=== PATIENT | male | born 1965 | race American Indian/Alaskan Native ===

== ENCOUNTER 2017-02-21 09:28 | Inpatient (IN) | payer MEDICAID ==
[2017-02-21 09:32] VITALS: BMI 27.6
[2017-02-21 10:32] LABS: BASO # 0.1 K/uL (0.0-0.2); BASO % 1.3 % (0.0-2.0); EOS # 0.3 K/uL (0.0-0.7); HEMOGLOBIN 11.6 g/dL (12.0-18.0); LYMPH # 1.6 K/uL (1.0-4.3); LYMPH % 23.7 % (20.0-40.0); MEAN CELL VOLUME 92.1 fL (80.0-94.0); MEAN CORPUSCULAR HEMOGLOBIN 29.8 pg (27.0-31.0); MEAN CORPUSCULAR HGB CONC 32.4 g/dL (33.0-37.0); MEAN PLATELET VOLUME 7.5 fL (7.2-11.7); MONO # 1.1 K/uL (0.0-0.8); MONO % 17.3 % (0.0-10.0); NEUT # 3.6 K/uL (1.8-7.0); NEUT % 53.7 % (50.0-75.0); RBC 3.9 Mil/uL (4.40-5.90); RED CELL DISTRIBUTION WIDTH 14.2 % (11.5-14.5); WHITE BLOOD COUNT 6.6 K/uL (4.8-10.8)
[2017-02-21 10:41] LABS: SQUAMOUS EPITHIAL < 1 /hpf (0-5); URINE BACTERIA RARE (<OCC); URINE BILIRUBIN NEGATIVE (NEGATIVE); URINE BLOOD NEGATIVE (NEGATIVE); URINE CLARITY Clear (Clear); URINE COLOR Yellow (YELLOW); URINE GLUCOSE (UA) NORMAL (Normal); URINE LEUKOCYTE ESTERASE NEG Leu/uL (Negative); URINE NITRATE NEGATIVE (NEGATIVE); URINE PROTEIN NEGATIVE (NEGATIVE)
[2017-02-21 10:48] LABS: ALBUMIN 3.3 g/dL (3.5-5.0)
[2017-02-21 10:51] LABS: ALB/GLOB RATIO 1.1 (1.0-2.1); ALT/SGPT 44 U/L (21-72); AST/SGOT 34 U/L (17-59); BLOOD UREA NITROGEN 14 mg/dL (9-20); CALCIUM 8.4 mg/dl (8.6-10.4); GFR AFRICAN-AMERICAN > 60; GFR NON-AFRICAN AMERICAN > 60
--- NOTE | 2017-02-21 10:51 | RAD ---
PROCEDURE: CHEST RADIOGRAPH, 1 VIEW. Portable study 10:00 HISTORY: Detox/Psy COMPARISON: KeyNone available. FINDINGS: LUNGS: Clear. PLEURA: No pneumothorax or pleural fluid seen. CARDIOVASCULAR: No radiographic findings to suggest acute or significant cardiovascular disease. OSSEOUS STRUCTURES: No significant abnormalities. VISUALIZED UPPER ABDOMEN: Normal. OTHER FINDINGS: None. IMPRESSION: No active disease. Concordant results with the preliminary interpretation rendered by the emergency department physician procedure.
[2017-02-21 10:58] LABS: BARBITURATES, UR NEGATIVE (NEGATIVE)
[2017-02-21 10:59] LABS: BENZODIAZEPINES, UR NEGATIVE (NEGATIVE)
[2017-02-21 11:02] LABS: PHENCYCLIDINE, UR NEGATIVE (NEGATIVE)
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
[2017-02-21 11:59] LABS: OPIATES, UR POSITIVE (NEGATIVE)
[2017-02-21 14:00] VITALS: O2SAT 100
--- NOTE | 2017-02-21 17:28 | PCM.BM ---
Treatment Plan Problems - Problems identified on initial assessmt Auditory Hallucinations Date Initiated: 02/21/17 Time Initiated: 17:27 Assessment reference: NA Status: Active Comment: Speaks to self, and yells at voices during interview. Opiate Abuse Date Initiated: 02/21/17 Time Initiated: 17:27 Assessment reference: NA Status: Active Comment: Used 11 bags yesterday, last time was 8 PM 02/20/2017
[2017-02-21] MEDS: Divalproex 500 mg DR Tab PO SCH (18:20)
[2017-02-22] MEDS: Divalproex 500 mg DR Tab PO SCH ×2 (09:38→17:04)
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
[2017-02-23] MEDS: Divalproex 500 mg DR Tab PO SCH (09:31)
[2017-02-23 09:50] VITALS: RESP 20; TEMP 97.7
--- NOTE | 2017-02-23 10:41 | PCM.PYCHPN ---
Psychiatric Progress Note - Psychiatric Progress Note Patient seen today, length of contact: 16 min Patient Chief Complaint: 'I am feeling little better' Problems Identified/Issues Discussed: Patient seen and evaluated, chart reviewed and discussed with the nurse. Patient appears more organized and less internally preoccupied than yesterday. Patient remained isolated, confined and withdrawn. He reports improvement in the voices. Patient still appears paranoid. However he remained calm and cooperative and was easily redirectable. He is taking medication and denies any side effects. Supportive therapy and psychoeducation were given. Medication Change: No Medical Record Reviewed: Yes Mental Status Examination - Cognitive Function Orientation: Person, Place, Situation, Time Memory: Intact Attention: WNL Concentration: Poor Association: WNL Fund of Knowledge: Poor - Mood Mood: Depressed, Anxious - Affect Affect: Constricted, Depressed - Speech Speech: Soft - Formal Thought Process Formal Thought Process: Hallucinations, Delusions, Paranoia, Loosening of associations - Suicidal Ideation Suicidal Ideation: No - Homicidal Ideation Homicidal Ideation: No Goal/Treatment Plan - Goal/Treatment Plan Need for Continued Stay: Discharge may exacerbated symptoms, Severe functional impairment Progress Toward Problem(s) and Goals/Treatment Plan: Schizophrenia paranoid type continuous CBT Psychoeducation Supportive therapy, group therapy, individual therapy Risperdal 2 mg PO BID Neurontin 100 mg by mouth 3 times a day Trazodone 50 mg by mouth daily at bedtime Opioid use disorder severe CBT Psychoeducation Supportive therapy, individual therapy Use [place] for abstinence Opioid withdrawal CBT Psychoeducation Supportive therapy, individual therapy Clonidine when necessary Methadone taper - Smoking Cessation Smoking Cessation Initiated: No
[2017-02-23 15:44] VITALS: BP 120/90; PULSE 93
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
--- NOTE | 2017-02-24 12:51 | CARD ---
APPROVED REPORT EKG Measurement Heart [id number] <Conclusion> Normal sinus rhythm Nonspecific T wave abnormality Abnormal ECG
== END 2017-02-23 16:04 | disposition left against medical advice (07) | DRG 430 ==
LOC: C.ER 09:28 → C.9OBSV 11:28 → OBSVTOIN 13:57 → C.9E 13:57 → C.5E 14:28
PROVIDERS: ADMIT Emergency Medicine; ATTEND Psychiatry & Neurology Psychiatry
PROC: GZHZZZZ Group Psychotherapy (ICD-10-PCS; principal; 2017-02-21)
PROC: GZ58ZZZ Individual Psychotherapy, Cognitive-Behavioral (ICD-10-PCS; 2017-02-21)
PROC: GZ56ZZZ Individual Psychotherapy, Supportive (ICD-10-PCS; 2017-02-21)
PROC: HZ56ZZZ Individual Psychotherapy for Substance Abuse Treatment, Psychoeducation (ICD-10-PCS; 2017-02-21)
PROC: HZ59ZZZ Individual Psychotherapy for Substance Abuse Treatment, Supportive (ICD-10-PCS; 2017-02-21)
PROC: HZ81ZZZ Medication Management for Substance Abuse Treatment, Methadone Maintenance (ICD-10-PCS; 2017-02-21)
DX: F20.0 Paranoid schizophrenia (principal); I10 Essential (primary) hypertension; F11.23 Opioid dependence with withdrawal; E78.00 Pure hypercholesterolemia, unspecified

== ENCOUNTER 2018-01-27 10:04 | Inpatient (IN) | payer MEDICAID ==
[2018-01-27 10:04] VITALS: BMI 27.6
[2018-01-27 11:15] LABS: BASO % 0.5 % (0.0-2.0); EOS % 0.4 % (0.0-4.0); HEMOGLOBIN 13.4 g/dL (12.0-18.0); LYMPH # 1.6 K/uL (1.0-4.3); LYMPH % 20.3 % (20.0-40.0); MEAN CELL VOLUME 89.5 fL (80.0-94.0); MEAN CORPUSCULAR HEMOGLOBIN 29.7 pg (27.0-31.0); MEAN CORPUSCULAR HGB CONC 33.1 g/dL (33.0-37.0); MEAN PLATELET VOLUME 7.3 fL (7.2-11.7); MONO % 12.9 % (0.0-10.0); NEUT % 65.9 % (50.0-75.0); RBC 4.52 Mil/uL (4.40-5.90); RED CELL DISTRIBUTION WIDTH 13.4 % (11.5-14.5); WHITE BLOOD COUNT 7.6 K/uL (4.8-10.8)
--- NOTE | 2018-01-27 11:25 | C.PDOC ---
History Of Present Illness <Serenity Asencio - Last Filed: 01/27/18 13:04> <Oswald Cacerespson Kami - Last Filed: 01/27/18 15:48> 52 y/o male with history of OD presents to ED stating "I need to take my meds". Contrary to triage patient denies suicidal ideation and reports he is compliant with medication. Patient denies drug use, recent suicide attempt or any other complaints at this time. Patient poor historian. (Serenity Asencio) History Per: Patient History/Exam Limitations: no limitations Onset/Duration Of Symptoms: Days Current Symptoms Are (Timing): Still Present Suicide/Self Injury Attempted (Context): None Modifying Factor(s): None <Serenity Asencio - Last Filed: 01/27/18 13:04> <MorrisSiddiqi Kami - Last Filed: 01/27/18 15:48> Time Seen by Provider: 01/27/18 10:35 Chief Complaint (Nursing): Psychiatric Evaluation Past Medical History Reviewed: Historical Data, Nursing Documentation, Vital Signs - Medical History PMH: Bipolar Disorder, Diabetes, HTN, Hypercholesterolemia, Schizophrenia Comment Only: Hepatitis (Patient denied), HIV (Patient denied), Seizures ( Patient denied), Sexually Transmitted Disease (Patient denied) Surgical History: No Surg Hx Family History: States: No Known Family Hx - Social History Hx Alcohol Use: No Hx Substance Use: Yes - Immunization History Hx Tetanus Toxoid Vaccination: No Hx Influenza Vaccination: Yes Hx Pneumococcal Vaccination: No <Serenity Asencio - Last Filed: 01/27/18 13:04> Vital Signs: Last Vital Signs Temp 98.9 F 01/27/18 14:25 Pulse 106 H 01/27/18 14:25 Resp 18 01/27/18 14:25 BP 113/84 01/27/18 14:25 Pulse Ox 96 01/27/18 14:25 - [facility] Procedures GROUP PSYCHOTHERAPY (02/21/17) INDIV PSYCHOTHERAPY FOR SUBSTANCE ABUSE TREATMENT, SUPPORT (02/21/17) INDIV PSYCHOTHERAPY FOR SUBSTANCE ABUSE, PSYCHOEDUCATION (02/21/17) INDIVIDUAL PSYCHOTHERAPY, COGNITIVE-BEHAVIORAL (02/21/17) INDIVIDUAL PSYCHOTHERAPY, SUPPORTIVE (02/21/17) MEDS MGMT FOR SUBSTANCE ABUSE TREATMENT, METHADONE MAINT (02/21/17) Review Of Systems Constitutional: Negative for: Fever, Chills Cardiovascular: Negative for: Chest Pain Respiratory: Negative for: Shortness of Breath Gastrointestinal: Negative for: Nausea, Vomiting Skin: Negative for: Rash Psych: Negative for: Depression, Suicidal ideation, Withdrawal <Serenity Asencio Last Filed: 01/27/18 13:04> Physical Exam - Physical Exam Appears: Non-toxic, No Acute Distress Skin: Warm, Dry, No Rash Head: Atraumatic, Normacephalic Eye(s): bilateral: Normal Inspection Oral Mucosa: Moist Neck: Normal ROM, Supple Cardiovascular: Rhythm Regular Respiratory: Normal Breath Sounds, No Rales, No Rhonchi, No Wheezing Gastrointestinal/Abdominal: Soft, No Tenderness, No Guarding, No Rebound Neurological/Psych: Oriented x3, Other (Flat affect, calm. No active hallucinations or gross intox/withdrawal signs) <Serenity Asencio Filed: 01/27/18 13:04> ED Course And Treatment - Laboratory Results Result Diagrams: 01/27/18 11:06 01/27/18 11:06 O2 Sat by Pulse Oximetry: 100 (RA) Pulse Ox Interpretation: Normal <Serenity Asencio Last Filed: 01/27/18 13:04> - Laboratory Results Result Diagrams: 01/27/18 11:06 01/27/18 11:06 <Devang Caceres - Last Filed: 01/27/18 15:48> Disposition Counseled Patient/Family Regarding: Diagnosis - Disposition Disposition Time: 13:00 <Serenity Asencio Filed: 01/27/18 13:04> Discussed With : Robin Foster Doctor Will See Patient In The: Hospital - Disposition Disposition Time: 15:48 <Devang Caceres Kami - Last Filed: 01/27/18 15:48> - Disposition Disposition: HOSPITALIZED Condition: STABLE Forms: My[employer] (Telugu) - Clinical Impression Clinical Impression: Schizophrenia - Scribe Statement The provider has reviewed the documentation as recorded by the Scribe <Serenity Asencio Filed: 01/27/18 13:04> <Devang Caceres Kami - Last Filed: 01/27/18 15:48> - Scribe Statement Alban Garcia All medical record entries made by the Scribe were at my direction and personally dictated by me. I have reviewed the chart and agree that the record accurately reflects my personal performance of the history, physical exam, medical decision making, and the department course for this patient. I have also personally directed, reviewed, and agree with the discharge instructions and disposition. (Serenity Asencio) Physician Patient Turnover Patient Signed Over To: Devang Caceres Handoff Comments: FU LABS, PSYCH, DISPO <Serenity Asencio - Last Filed: 01/27/18 13:04>
[2018-01-27 11:27] LABS: ALB/GLOB RATIO 1.2 (1.0-2.1); ALBUMIN 4.7 g/dL (3.5-5.0); ALT/SGPT 83 U/L (21-72); AST/SGOT 92 U/L (17-59); BLOOD UREA NITROGEN 16 mg/dL (9-20); CALCIUM 9.3 mg/dl (8.6-10.4); GFR AFRICAN-AMERICAN > 60; GFR NON-AFRICAN AMERICAN > 60
[2018-01-27 11:28] LABS: ACETAMINOPHEN < 10.0 ug/mL (10.0-30.0); SALICYLATE < 1.0 mg/dL 1
[2018-01-27 14:49] LABS: URINE BACTERIA RARE (<OCC); URINE BILIRUBIN NEGATIVE (NEGATIVE); URINE BLOOD 1+ (NEGATIVE); URINE CLARITY Clear (Clear); URINE COLOR Yellow (YELLOW); URINE GLUCOSE (UA) 1+ mg/dL (Normal); URINE LEUKOCYTE ESTERASE NEG Leu/uL (Negative); URINE PROTEIN 1+ mg/dL (NEGATIVE)
[2018-01-27 15:03] LABS: BARBITURATES, UR NEGATIVE (NEGATIVE); BENZODIAZEPINES, UR NEGATIVE (NEGATIVE); PHENCYCLIDINE, UR NEGATIVE (NEGATIVE)
[2018-01-27 15:04] LABS: OPIATES, UR POSITIVE (NEGATIVE)
[2018-01-27] MEDS ORDERED: Aluminum Hydroxide/Magnesium Hydroxide Susp (30 mL) PO PRN (17:28)
[2018-01-27] MEDS ORDERED: Benzocaine/Menthol (Cepacol) Lozenge PO PRN (17:28)
--- NOTE | 2018-01-27 18:10 | PCM.BM ---
<Teddy Monte - Last Filed: 01/27/18 18:08> Treatment Plan Problems - Problems identified on initial assessmt Auditory Hallucinations Date Initiated: 01/27/18 Time Initiated: 18:08 Assessment reference: NA Substance abuse Date Initiated: 01/27/18 Time Initiated: 18:09 Assessment reference: NA Treatment assets and liabiliti Patient Assests: cooperative, self-reliant, ADL independent, good support system , negotiates basic needs, cognitively intact Patient Liabilities: substance abuse (Heroin), medical problems (Diabetes, HTN) - Milieu Protocol Maintain good personal hygiene: daily Encourage regular showers, daily Remind patient to perform daily oral care, every shift Assist patient to perform ADL's Conduct patient checks and document Observation sheet: Q15 minutes (For safety) Maintain personal safety: every shift Educate patient to report safety concerns to staff, every shift Monitor environment for contraband/sharps Medication safety: Monitor for expected outcome, potential side effects: every shift, Assess barriers to learning: every shift, Assess readiness for medication education: every shift <Kerry Smith - Last Filed: 01/28/18 14:44> Family Contact Family involvement: Patient does not wish Family/SO involvement Family contact: Patient declines to allow family contact at present - Goals for Treatment Patient goals for treatment: "I want to go to a rehab program." Discharge/Continuing Care - Education Needs Education Needs: Patient Medication, Patient Diagnosis/Disease Process, Patient Coping Skills, Patient Placement options, Patient Community resources - Discharge Discharge Criteria: Free of Suicidal thoughts, Normal sleep pattern, Ability to care for self, No longer exhibiting s/s of withdrawal, Reduction of target symptoms Discharge to:: Substance Abuse Rehab - Treatment Team Participation Discussed with Family/SO: No Was Patient/Family/SO present at Treatment Team Meeting: Yes <Robin Foster - Last Filed: 01/30/18 11:20> - Diagnosis (1) Schizophrenia Status: Acute Interventions: 01/30/18 11:20 * Assess/adjust medications daily and /or as needed * See patient on an individual basis 7x/week to assess status of hallucinations * Discuss risks, benefits, side effects and alternatives of medications * (2) Opioid use disorder, severe, dependence Status: Acute Interventions: 01/30/18 11:20 * Assess 7x/week regarding severity of withdrawal * Educate regarding risks, benefits, side effects and alternatives of medications * Use Motivational Interviewing for abstinence * Use CBT for relapse prevention * Medication management for withdrawal symptoms * Encourage medication assisted treatment *
--- NOTE | 2018-01-28 10:15 | PCM.PSYCH ---
Initial Psychiatric Evaluation - Initial Psychiatric Evaluation Type of Admission: Voluntary Legal Status: Capacity Chief Complaint (in patient's own words): I was hearing voices.' History of Present Illness and Precipitating Events: Patient is a 52 year old single AAM, who was brought in by his cousin for complaints of command auditory hallucinations telling him to kill himself. Pt has a long history of schizophrenia. He has history of multiple inpatient psychiatric hospitalizations. He was last discharged from [facility] , almost 10 days ago. As per him he stopped taking his meds and relapsed on heroin. He has been abusing almost 10 bags daily, last abuse was yesterday. As per the patient he started hearing voices to hurt himself and started seeing shadows and became increasingly paranoid and delusional. His cousin brought him to the hospital for further evaluation. He appeared very disorganized and internally preoccupied. He reports auditory and visual hallucinations and persecutory delusions. Patient was observed walking around, nodding out and not cooperating with anyone. He appears delusional and paranoid. He reports of withdrawal symptoms including joint pains, sweating, headache, sweating and nausea. He has hx of OD attempt approximately 9 months ago. He reports irritability and agitation. He also reports depressed mood and feelings of hopelessness. PMH: DM Current Medications: Active Medications Generic Name Dose Route Start Last Admin Trade Name Freq PRN Reason Stop Dose Admin Al Hydrox/Mg Hydrox/Simethicone 30 ml 01/27/18 17:28 Maalox 30 Ml PO TID PRN Indigestion / Heartburn Benzocaine/Menthol 1 migdalia 01/27/18 17:28 Cepacol Sore Throat PO QID PRN Sore Throat Clonidine HCl 0.1 mg 01/27/18 17:28 Catapres PO Q8 PRN COWS Score More or Equal to 5 Gabapentin 100 mg 01/28/18 10:00 Neurontin PO TID VALERIA Hydroxyzine HCl 25 mg 01/27/18 17:29 Atarax PO Q6 PRN Anxiety Loperamide HCl 2 mg 01/27/18 17:28 Imodium PO Q8 PRN Diarrhea Ondansetron HCl 4 mg 01/27/18 17:28 Zofran Tab PO Q8 PRN Nausea/Vomiting Pseudoephedrine HCl 60 mg 01/27/18 17:28 Sudafed Tab PO QID PRN Nasal/Sinus Congestion Trazodone HCl 50 mg 01/27/18 22:00 01/27/18 21:24 Desyrel PO 50 mg HS VALERIA Administration Past Psychiatric History - Past Psychiatric History Previous Treatment History: Inpatient Pertinent Medical Hx (Current Medical&Sleep Prob, Allergies): Allergies Allergy/AdvReac Type Severity Reaction Status Date / Time No Known Allergies Allergy Verified 02/21/17 09:30 Insulin Aspart, Recombinant [Novolog] 10 unit SQ TID 01/27/18 Invega 01/27/18 Review of Systems - Review of Systems All systems: reviewed and no additional remarkable complaints except - Psychiatric Psychiatric: Anxiety, Auditory Hallucinations, Irritability, Paranoia, Suicidal Ideation Mental Status Examination - Personal Presentation Personal Presentation: Looks stated age - Affect Affect: Constricted - Motor Activity Motor Activity: Psychomotor Agitation - Reliability in Providing Information Reliability in Providing Information: Poor, due to alteration in thoughts, Poor , due to altered mood - Speech Speech: Disorganized - Mood Mood: Anxious - Formal Thought Process Formal Thought Process: Hallucinations, Delusions, Paranoia, Loosening of associations - Hallucinations/Delusions Hallucinations: Visual, Auditory Delusions: Persecution - Obsessions/Compulsions Obsessions: No Compulsions: No - Cognitive Functions Orientation: Person, Place, Situation, Time Sensorium: Alert Attention/Concentration: Attentive Abstract Thinking: [place] Estimate of Intelligence: Below average Judgement: Imparied, as evidence by: Poor judgement, Imparied, as evidence by: Lack of insight into illness - Risk Risk: Suicidal, Withdrawal, Diminished functioning - Limitations Limitations: Living alone DSM 5 DX - DSM 5 DSM 5 Diagnosis: Schizoaffective disorder bipolar type Opioid use disorder severe Opioid withdrawal - Recommended/Plan of Treatment Treatment Recommendations and Plan of Treatment: Schizoaffective disorder bipolar type CBT Psychoeducation Supportive therapy, group therapy, individual therapy Risperdal 1 mg by mouth twice a day Depakote DR 250 mg 2 times a day Trazodone 50 mg by mouth daily at bedtime Gabapentin 300 mg PO TID Opioid use disorder severe CBT Psychoeducation Supportive therapy, individual therapy Use [place] for abstinence Opioid withdrawal CBT Psychoeducation Supportive therapy, individual therapy Clonidine when necessary Methadone taper DM Continue prescribed meds Continue blood glucose monitoring - Smoking Cessation Smoking Cessation Initiated: No
[2018-01-28] MEDS: (Novolog) Insulin Aspart, Recombinant 100 u/ml 10 ml vial SC SCH ×3 (11:40→17:01)
[2018-01-28] MEDS: Divalproex 250 mg DR Tab PO SCH ×2 (11:42→17:11)
[2018-01-29] MEDS: (Novolog) Insulin Aspart, Recombinant 100 u/ml 10 ml vial SC SCH ×3 (08:12→16:26)
[2018-01-29] MEDS: Divalproex 250 mg DR Tab PO SCH ×2 (10:00→17:13)
--- NOTE | 2018-01-29 14:24 | PCM.PYCHPN ---
Psychiatric Progress Note - Psychiatric Progress Note Patient seen today, length of contact: 15 min Patient Chief Complaint: I am withdrawing.' Problems Identified/Issues Discussed: Patient seen and evaluated, chart reviewed and discussed with the nurse. Patient remained disorganized and internally preoccupied. He still reports of hearing voices. Patient still appears paranoid and delusional. Patient reports withdrawal symptoms including nausea, headaches, cramps and sweating. He reports depressed mood and feelings of hopelessness and helplessness. Patient remained isolated, confined and withdrawn. Patient is compliant with medications and denies any side effects. Symptoms are improving but need more time to stabilize. Support and psychoeducation given. Medication Change: Yes (increase risperdal ) Medical Record Reviewed: Yes Mental Status Examination - Cognitive Function Orientation: Person, Place, Situation, Time Memory: Intact Attention: Poor Concentration: Poor Association: Loose Fund of Knowledge: Poor - Mood Mood: Anxious - Affect Affect: Constricted - Speech Speech: Soft - Formal Thought Process Formal Thought Process: Hallucinations, Delusions, Paranoia, Loosening of associations - Suicidal Ideation Suicidal Ideation: No - Homicidal Ideation Homicidal Ideation: No Goal/Treatment Plan - Goal/Treatment Plan Need for Continued Stay: Severe depression anxiety, Severe functional impairment Progress Toward Problem(s) and Goals/Treatment Plan: Schizoaffective disorder bipolar type CBT Psychoeducation Supportive therapy, group therapy, individual therapy Risperdal 1 mg by mouth daily Risperdal 2 mg PO QHS Depakote DR 250 mg 2 times a day Trazodone 50 mg by mouth daily at bedtime Gabapentin 300 mg PO TID Opioid use disorder severe CBT Psychoeducation Supportive therapy, individual therapy Use [place] for abstinence Opioid withdrawal CBT Psychoeducation Supportive therapy, individual therapy Clonidine when necessary Methadone taper DM Continue prescribed meds Continue blood glucose monitoring
[2018-01-30] MEDS: (Novolog) Insulin Aspart, Recombinant 100 u/ml 10 ml vial SC SCH ×3 (08:13→16:37)
[2018-01-30] MEDS: Divalproex 250 mg DR Tab PO SCH ×2 (09:51→17:08)
--- NOTE | 2018-01-31 00:53 | PCM.PYCHPN ---
Psychiatric Progress Note - Psychiatric Progress Note Patient seen today, length of contact: 15 min Patient Chief Complaint: I am withdrawing.' Problems Identified/Issues Discussed: Patient seen and evaluated, chart reviewed and discussed with the nurse. Patient remained disorganized and internally preoccupied. He still reports of hearing voices. Patient still appears paranoid and delusional. Patient reports withdrawal symptoms including nausea, headaches, cramps and sweating. He reports depressed mood and feelings of hopelessness and helplessness. Patient remained isolated, confined and withdrawn. Patient is compliant with medications and denies any side effects. Symptoms are improving but need more time to stabilize. Support and psychoeducation given. Medication Change: Yes (invega sustenna) Medical Record Reviewed: Yes Mental Status Examination - Cognitive Function Orientation: Person, Place, Situation, Time Memory: Intact Attention: Poor Concentration: Poor Association: Loose Fund of Knowledge: Poor - Mood Mood: Anxious - Affect Affect: Constricted - Speech Speech: Soft - Formal Thought Process Formal Thought Process: Hallucinations, Delusions, Paranoia, Loosening of associations - Suicidal Ideation Suicidal Ideation: No - Homicidal Ideation Homicidal Ideation: No Goal/Treatment Plan - Goal/Treatment Plan Need for Continued Stay: Severe depression anxiety, Severe functional impairment Progress Toward Problem(s) and Goals/Treatment Plan: Schizoaffective disorder bipolar type CBT Psychoeducation Supportive therapy, group therapy, individual therapy Risperdal 1 mg by mouth daily Risperdal 2 mg PO QHS Depakote DR 250 mg 2 times a day Trazodone 50 mg by mouth daily at bedtime Gabapentin 300 mg PO TID Invega Susstenna 234 mg I/M. Opioid use disorder severe CBT Psychoeducation Supportive therapy, individual therapy Use [place] for abstinence Opioid withdrawal CBT Psychoeducation Supportive therapy, individual therapy Clonidine when necessary Methadone taper DM Continue prescribed meds Continue blood glucose monitoring - Smoking Cessation Smoking Cessation Initiated: No
[2018-01-31] MEDS: (Novolog) Insulin Aspart, Recombinant 100 u/ml 10 ml vial SC SCH ×3 (08:10→16:39)
[2018-01-31] MEDS: Divalproex 250 mg DR Tab PO SCH ×2 (09:16→17:08)
[2018-01-31] MEDS ORDERED: Paliperidone Palmitate 234 MG/1.5 ML SYR IM ONE (11:00)
--- NOTE | 2018-01-31 19:14 | PCM.PYCHPN ---
Psychiatric Progress Note - Psychiatric Progress Note Patient seen today, length of contact: 15 min Patient Chief Complaint: I still feel some SWEATS and nausea Problems Identified/Issues Discussed: Patient seen, chart reviewed, case discussed with the staff. Issues related to illness and treatment were discussed with the patient and staff. Reported compliant with treatment with no adverse affects. Tolerating treatment very well. Feeling much better with very mild withdrawal symptoms. Aftercare discussed with the patient. At the time of evaluation, patient was awake alert oriented 3, had no delusions , no auditory or visual hallucinations, no suicidal ideations or homicidal ideations. Medical Problems: Diabetes mellitus Diagnostic Results: Reviewed DSM 5 Symptoms Update: Some improvement with treatment Medication Change: No Medical Record Reviewed: Yes Mental Status Examination - Cognitive Function Orientation: Person, Place, Situation, Time Memory: Intact Attention: WNL Concentration: WNL Association: WNL Fund of Knowledge: WN Decription of patient's judgement and insights: Fair - Mood Mood: Anxious (Much less than before) - Affect Affect: Blunted - Speech Speech: Appropriate - Formal Thought Process Formal Thought Process: Paranoia, Loosening of associations - Suicidal Ideation Suicidal Ideation: No - Homicidal Ideation Homicidal Ideation: No Goal/Treatment Plan - Goal/Treatment Plan Need for Continued Stay: Remain at risks for inpatient hospitalization, Discharge may exacerbated symptoms, Severe functional impairment Progress Toward Problem(s) and Goals/Treatment Plan: Some improvement with treatment. Patient education. Supportive therapy. Continue treatment as before. Estimated Date of D/C: 02/02/18 - Smoking Cessation Smoking Cessation Initiated: No
[2018-02-01] MEDS: (Novolog) Insulin Aspart, Recombinant 100 u/ml 10 ml vial SC SCH ×3 (08:14→16:43)
[2018-02-01] MEDS: Divalproex 250 mg DR Tab PO SCH ×2 (09:33→17:11)
--- NOTE | 2018-02-01 18:35 | PCM.PYCHPN ---
Psychiatric Progress Note - Psychiatric Progress Note Patient seen today, length of contact: 15 min Patient Chief Complaint: I'm still feeling some withdrawal symptoms. Can I get more methadone. Problems Identified/Issues Discussed: Patient seen, chart reviewed, case discussed with the staff. Issues related to illness and treatment were discussed with the patient and staff. Reported compliant with treatment with no adverse affects. Tolerating treatment very well. Feeling better with very mild withdrawal symptoms, requesting for more methadone. Aftercare discussed with the patient. At the time of evaluation, patient was awake alert oriented 3, had no delusions , no auditory or visual hallucinations, no suicidal ideations or homicidal ideations. Medical Problems: Diabetes mellitus Diagnostic Results: Reviewed DSM 5 Symptoms Update: Improving with treatment Medication Change: No Medical Record Reviewed: Yes Mental Status Examination - Cognitive Function Orientation: Person, Place, Situation, Time Memory: Intact Attention: WNL Concentration: WNL Association: WNL Fund of Knowledge: [facility] Decription of patient's judgement and insights: Fair - Mood Mood: Anxious (Much less than before) - Affect Affect: Blunted - Speech Speech: Appropriate - Formal Thought Process Formal Thought Process: Paranoia, Loosening of associations - Suicidal Ideation Suicidal Ideation: No - Homicidal Ideation Homicidal Ideation: No Goal/Treatment Plan - Goal/Treatment Plan Need for Continued Stay: Remain at risks for inpatient hospitalization, Discharge may exacerbated symptoms, Severe functional impairment Progress Toward Problem(s) and Goals/Treatment Plan: Some improvement with treatment. Patient education. Supportive therapy. Continue treatment as before. Estimated Date of D/C: 02/02/18 - Smoking Cessation Smoking Cessation Initiated: No
[2018-02-02] MEDS: (Novolog) Insulin Aspart, Recombinant 100 u/ml 10 ml vial SC SCH ×3 (07:49→16:27)
[2018-02-02] MEDS: Divalproex 250 mg DR Tab PO SCH ×2 (10:09→17:28)
--- NOTE | 2018-02-02 14:24 | PCM.PYCHPN ---
Psychiatric Progress Note - Psychiatric Progress Note Patient seen today, length of contact: 15 min Patient Chief Complaint: I am withdrawing.' Problems Identified/Issues Discussed: Patient seen and evaluated, chart reviewed and discussed with the nurse. Patient remained disorganized and internally preoccupied. He still reports of hearing voices. Patient still appears paranoid and delusional. Patient reports withdrawal symptoms including nausea, headaches, cramps and sweating. He reports depressed mood and feelings of hopelessness and helplessness. Patient remained isolated, confined and withdrawn. Patient is compliant with medications and denies any side effects. Symptoms are improving but need more time to stabilize. Support and psychoeducation given. Medication Change: No Medical Record Reviewed: Yes Mental Status Examination - Cognitive Function Orientation: Person, Place, Situation, Time Memory: Intact Attention: WNL Concentration: WNL Association: WNL Fund of Knowledge: WNL - Mood Mood: Anxious (Much less than before) - Affect Affect: Blunted - Speech Speech: Appropriate - Formal Thought Process Formal Thought Process: Paranoia, Loosening of associations - Suicidal Ideation Suicidal Ideation: No - Homicidal Ideation Homicidal Ideation: No Goal/Treatment Plan - Goal/Treatment Plan Need for Continued Stay: Remain at risks for inpatient hospitalization, Discharge may exacerbated symptoms, Severe functional impairment Progress Toward Problem(s) and Goals/Treatment Plan: Schizoaffective disorder bipolar type CBT Psychoeducation Supportive therapy, group therapy, individual therapy Risperdal 1 mg by mouth daily Risperdal 2 [address] PO QHS Depakote DR 250 mg 2 times a day Trazodone 50 mg by mouth daily at bedtime Gabapentin 300 mg PO TID Invega Susstenna 234 mg I/M. Opioid use disorder severe CBT Psychoeducation Supportive therapy, individual therapy Use [place] for abstinence Opioid withdrawal CBT Psychoeducation Supportive therapy, individual therapy Clonidine when necessary Methadone taper DM Continue prescribed meds Continue blood glucose monitoring Estimated Date of D/C: 02/02/18
[2018-02-03 06:37] VITALS: BP 123/80; PULSE 69; RESP 18; TEMP 97.1; O2SAT 98
[2018-02-03] MEDS: (Novolog) Insulin Aspart, Recombinant 100 u/ml 10 ml vial SC SCH (08:06)
[2018-02-03] MEDS: Divalproex 250 mg DR Tab PO SCH (09:00)
--- NOTE | 2018-02-03 10:36 | PCM.PYCHDC ---
Mental Status Examination - Mental Status Examination Orientation: Person, Place, Situation, Time Memory: Intact Mood: Neutral Affect: Constricted Speech: Soft Attention: WNL Concentration: WNL Association: WNL Fund of Knowledge: WNL Formal Thought Process: No Impairment Description of patient's judgement and insight: good, fair Psychotic Thoughts and Behaviors: denies any AVH Suicidal Ideation: No Current Homicidal Ideation?: No Discharge Summary - Discharge Note Reason for Hospitalization: Patient is a 52 year old single AAM, who was brought in by his cousin for complaints of command auditory hallucinations telling him to kill himself. Pt has a long history of schizophrenia. He has history of multiple inpatient psychiatric hospitalizations. He was last discharged from [facility] , almost 10 days ago. As per him he stopped taking his meds and relapsed on heroin. He has been abusing almost 10 bags daily, last abuse was yesterday. As per the patient he started hearing voices to hurt himself and started seeing shadows and became increasingly paranoid and delusional. His cousin brought him to the hospital for further evaluation. He appeared very disorganized and internally preoccupied. He reports auditory and visual hallucinations and persecutory delusions. Patient was observed walking around, nodding out and not cooperating with anyone. He appears delusional and paranoid. He reports of withdrawal symptoms including joint pains, sweating, headache, sweating and nausea. He has hx of OD attempt approximately 9 months ago. He reports irritability and agitation. He also reports depressed mood and feelings of hopelessness. Laboratory Data: Abnormal Lab Results 02/02/18 02/03/18 16:23 07:58 POC Glucose (mg/dL) 183 H 161 H Consultations:: List each consultation separately and include: 1. Reason for request. 2. Findings. 3. Follow-up Summary of Hospital Course include:: 1. Description of specific treatment plan utilized for patients during their course of treatmen. 2. Summarize the time- course for resolution of acute symptoms and/or regressed behaviors. 3. Describe issues identified and worked on during hospitalization. 4. Describe medication utilized. 5. Describe medical problems identified and treated. 6. Reassessment of suicide risk Summary of Hospital Course: Patient is a 52 year old single AAM, who was brought in by his cousin for complaints of command auditory hallucinations telling him to kill himself. Pt has a long history of schizophrenia. He has history of multiple inpatient psychiatric hospitalizations. He was last discharged from [facility] , almost 10 days ago. As per him he stopped taking his meds and relapsed on heroin. He has been abusing almost 10 bags daily, last abuse was yesterday. As per the patient he started hearing voices to hurt himself and started seeing shadows and became increasingly paranoid and delusional. His cousin brought him to the hospital for further evaluation. He appeared very disorganized and internally preoccupied. He reports auditory and visual hallucinations and persecutory delusions. Patient was observed walking around, nodding out and not cooperating with anyone. He appears delusional and paranoid. He reports of withdrawal symptoms including joint pains, sweating, headache, sweating and nausea. He has hx of OD attempt approximately 9 months ago. He reports irritability and agitation. He also reports depressed mood and feelings of hopelessness. PMH: DM - Diagnosis (1) Schizophrenia Current Visit: Yes Status: Acute (2) Opioid use disorder, severe, dependence Current Visit: Yes Status: Acute - Final Diagnosis (DSM 5) Condition upon Discharge: STABLE DSM 5: Schizoaffective disorder bipolar type Opioid use disorder severe Opioid withdrawal Disposition: HOME/ ROUTINE Follow-up Treatment Plan: Schizoaffective disorder bipolar type CBT Psychoeducation Supportive therapy, group therapy, individual therapy Risperdal 1 mg by mouth daily Risperdal [address] PO QHS Depakote DR 250 mg 2 times a day Trazodone 50 mg by mouth daily at bedtime Gabapentin 300 mg PO TID Invega Susstenna 234 mg I/M. Opioid use disorder severe CBT Psychoeducation Supportive therapy, individual therapy Use [place] for abstinence Opioid withdrawal CBT Psychoeducation Supportive therapy, individual therapy Clonidine when necessary Methadone taper DM Continue prescribed meds Continue blood glucose monitoring Prescriptions/Medication Reconciliation: Benztropine [Cogentin] 1 mg PO BID #60 tab Divalproex [Depakote DR] 250 mg PO BID #60 tcp Gabapentin [Neurontin] 300 mg PO BID #60 cap risperiDONE [RisperDAL Tab] 2 mg PO BID #60 tab traZODone [Desyrel] 50 mg PO HS #30 tab
== END 2018-02-03 11:05 | disposition home or self-care (01) | DRG 430 ==
LOC: C.ER 10:04 → C.9E 15:49 → C.5E 15:49
PROVIDERS: ADMIT Psychiatry & Neurology Psychiatry; ATTEND Psychiatry & Neurology Psychiatry
PROC: GZHZZZZ Group Psychotherapy (ICD-10-PCS; principal; 2018-01-27)
PROC: HZ2ZZZZ Detoxification Services for Substance Abuse Treatment (ICD-10-PCS; 2018-01-27)
PROC: HZ52ZZZ Individual Psychotherapy for Substance Abuse Treatment, Cognitive-Behavioral (ICD-10-PCS; 2018-01-27)
PROC: HZ59ZZZ Individual Psychotherapy for Substance Abuse Treatment, Supportive (ICD-10-PCS; 2018-01-27)
PROC: HZ56ZZZ Individual Psychotherapy for Substance Abuse Treatment, Psychoeducation (ICD-10-PCS; 2018-01-27)
PROC: HZ42ZZZ Group Counseling for Substance Abuse Treatment, Cognitive-Behavioral (ICD-10-PCS; 2018-01-27)
PROC: HZ46ZZZ Group Counseling for Substance Abuse Treatment, Psychoeducation (ICD-10-PCS; 2018-01-27)
PROC: GZ58ZZZ Individual Psychotherapy, Cognitive-Behavioral (ICD-10-PCS; 2018-01-27)
PROC: GZ56ZZZ Individual Psychotherapy, Supportive (ICD-10-PCS; 2018-01-27)
DX: F25.0 Schizoaffective disorder, bipolar type (principal); F11.23 Opioid dependence with withdrawal; E11.9 Type 2 diabetes mellitus without complications; E78.00 Pure hypercholesterolemia, unspecified; I10 Essential (primary) hypertension; F41.9 Anxiety disorder, unspecified; R45.851 Suicidal ideations

== ENCOUNTER 2018-02-11 17:17 | Inpatient (IN) | payer MEDICAID ==
[2018-02-11 17:18] VITALS: BMI 27.6
[2018-02-11 17:53] LABS: BASO # 0.1 K/uL (0.0-0.2); BASO % 0.9 % (0.0-2.0); EOS % 0.5 % (0.0-4.0); HEMOGLOBIN 13.4 g/dL (12.0-18.0); LYMPH # 1.2 K/uL (1.0-4.3); LYMPH % 20.6 % (20.0-40.0); MEAN CELL VOLUME 89.4 fL (80.0-94.0); MEAN CORPUSCULAR HEMOGLOBIN 29.7 pg (27.0-31.0); MEAN CORPUSCULAR HGB CONC 33.3 g/dL (33.0-37.0); MONO # 0.8 K/uL (0.0-0.8); MONO % 12.9 % (0.0-10.0); NEUT # 3.9 K/uL (1.8-7.0); NEUT % 65.1 % (50.0-75.0); NRBC % 0.1 % (0.0-2.0); RBC 4.51 Mil/uL (4.40-5.90)
--- NOTE | 2018-02-11 18:00 | C.PDOC ---
History Of Present Illness 52yo male, with history of schizophrenia, comes to ER for evaluation of auditory hallucination. Patient states he is compliant with his medication and is due to have his Invega injection next week. Patient reports his step-son recently , which triggered his auditory hallucinations. He states the hallucinations have been worsening and he hears 5 voices telling him to hurt himself. Patient denies any recent suicide attempts and states currently, he has no suicidal or homicidal ideation. He does admit to sniffing heroin. Patient denies any fever, chills, chest pain, shortness of breath, and offers no other medical complaints. Time Seen by Provider: 02/11/18 17:24 Chief Complaint (Nursing): Psychiatric Evaluation History Per: Patient History/Exam Limitations: no limitations Onset/Duration Of Symptoms: Days Current Symptoms Are (Timing): Still Present Modifying Factor(s): Narcotics Associated Symptoms: denies: Suicidal Thoughts, Suicidal Plan Additional History Per: Patient Past Medical History Reviewed: Historical Data, Nursing Documentation, Vital Signs Vital Signs: Last Vital Signs Temp 98 F 02/11/18 17:22 Pulse 78 02/11/18 17:22 Resp 18 02/11/18 17:22 BP 136/72 02/11/18 17:22 Pulse Ox 98 02/11/18 19:47 - Medical History PMH: Bipolar Disorder, Diabetes, HTN, Hypercholesterolemia, Schizophrenia Comment Only: Hepatitis (Patient denied), HIV (Patient denied), Seizures ( Patient denied), Sexually Transmitted Disease (Patient denied) Surgical History: No Surg Hx - [facility] Procedures DETOXIFICATION SERVICES FOR SUBSTANCE ABUSE TREATMENT (01/27/18) GROUP COSTUME RENTAL CLERK FOR SUBSTANCE ABUSE TREATMENT, PSYCHOEDUCATION (01/27/18) GROUP COSTUME RENTAL CLERK FOR SUBSTANCE ABUSE, COGNITIVE BEHAVIORAL (01/27/18) GROUP PSYCHOTHERAPY (01/27/18) INDIV PSYCHOTHERAPY FOR SUBSTANCE ABUSE TREATMENT, SUPPORT (01/27/18) INDIV PSYCHOTHERAPY FOR SUBSTANCE ABUSE, COGNITIV BEHAVIORAL (01/27/18) INDIV PSYCHOTHERAPY FOR SUBSTANCE ABUSE, PSYCHOEDUCATION (01/27/18) INDIVIDUAL PSYCHOTHERAPY, COGNITIVE-BEHAVIORAL (01/27/18) INDIVIDUAL PSYCHOTHERAPY, SUPPORTIVE (01/27/18) MEDS MGMT FOR SUBSTANCE ABUSE TREATMENT, METHADONE MAINT (02/21/17) Family History: States: Unknown Family Hx - Social History Hx Alcohol Use: No Hx Substance Use: Yes - Immunization History Hx Tetanus Toxoid Vaccination: No Hx Influenza Vaccination: Yes Hx Pneumococcal Vaccination: No Review Of Systems Constitutional: Negative for: Fever, Chills Cardiovascular: Negative for: Chest Pain Respiratory: Negative for: Shortness of Breath Psych: Positive for: Psychosis (auditory hallucinations). Negative for: Suicidal ideation Physical Exam - Physical Exam Appears: Non-toxic Skin: Warm, Dry Head: Atraumatic, Normacephalic Eye(s): bilateral: Normal Inspection, PERRL Neck: Normal ROM, Supple Chest: Symmetrical Cardiovascular: Rhythm Regular Respiratory: Normal Breath Sounds Gastrointestinal/Abdominal: Soft, No Tenderness Extremity: Normal ROM, No Pedal Edema Neurological/Psych: Oriented x3, Normal Speech, Normal Cognition, Normal Motor, Normal Sensation ED Course And Treatment - Laboratory Results Result Diagrams: 02/11/18 17:49 02/11/18 17:49 Lab Interpretation: No Acute Changes O2 Sat by Pulse Oximetry: 98 (RA) Pulse Ox Interpretation: Normal Progress Note: Patient is medically cleared for psychiatric admission. Medical Decision Making Medical Decision Making: Plan: -- Labs -- Urinalysis -- UDS -- 1:1 Observation Disposition - Disposition Disposition: HOSPITALIZED Disposition Time: 20:39 Condition: STABLE - POA Present On Arrival: None - Clinical Impression Clinical Impression: Paranoid schizophrenia - Scribe Statement The provider has reviewed the documentation as recorded by the Scribe (Kaylin Savage) Provider Attestation: All medical record entries made by the Scribe were at my direction and personally dictated by me. I have reviewed the chart and agree that the record accurately reflects my personal performance of the history, physical exam, medical decision making, and the department course for this patient. I have also personally directed, reviewed, and agree with the discharge instructions and disposition.
[2018-02-11 18:10] LABS: ALB/GLOB RATIO 1.3 (1.0-2.1); ALBUMIN 4.5 g/dL (3.5-5.0); ALT/SGPT 61 U/L (21-72); AST/SGOT 49 U/L (17-59); BLOOD UREA NITROGEN 13 mg/dL (9-20); CALCIUM 9.1 mg/dl (8.6-10.4); GFR AFRICAN-AMERICAN > 60; GFR NON-AFRICAN AMERICAN > 60
[2018-02-11 19:13] LABS: SQUAMOUS EPITHIAL < 1 /hpf (0-5); URINE BACTERIA RARE (<OCC); URINE BILIRUBIN NEGATIVE (NEGATIVE); URINE BLOOD NEGATIVE (NEGATIVE); URINE CLARITY Hazy (Clear); URINE COLOR Yellow (YELLOW); URINE GLUCOSE (UA) 2+ mg/dL (Normal); URINE LEUKOCYTE ESTERASE NEG Leu/uL (Negative); URINE PROTEIN 2+ mg/dL (NEGATIVE)
[2018-02-11 19:23] LABS: BARBITURATES, UR NEGATIVE (NEGATIVE); BENZODIAZEPINES, UR NEGATIVE (NEGATIVE); PHENCYCLIDINE, UR NEGATIVE (NEGATIVE)
[2018-02-11 19:30] LABS: OPIATES, UR POSITIVE (NEGATIVE)
[2018-02-11] MEDS: Divalproex 250 mg DR Tab PO SCH (22:27)
--- NOTE | 2018-02-11 23:09 | PCM.BM ---
<Fortunato Silva - Last Filed: 02/11/18 23:08> Treatment Plan Problems - Problems identified on initial assessmt Auditory Hallucination Date Initiated: 02/11/18 Time Initiated: 21:20 Assessment reference: NA Status: Active Treatment assets and liabiliti Patient Assests: cooperative, self-reliant, ADL independent, good support system , negotiates basic needs, cognitively intact Patient Liabilities: substance abuse (Opiates), medical problems (Diabetes, Hypertension) - Milieu Protocol Maintain good personal hygiene: daily Encourage regular showers, daily Remind patient to perform daily oral care, every shift Assist patient to perform ADL's Conduct patient checks and document Observation sheet: Q15 minutes Maintain personal safety: every shift Educate patient to report safety concerns to staff, every shift Monitor environment for contraband/sharps Medication safety: Monitor for expected outcome, potential side effects: every shift, Assess barriers to learning: every shift, Assess readiness for medication education: every shift <Kerry Smith - Last Filed: 02/13/18 13:43> Family Contact Family involvement: Patient does not wish Family/SO involvement Family contact: Patient declines to allow family contact at present - Goals for Treatment Patient goals for treatment: "I want to go to an outpatient program for treatment." Discharge/Continuing Care - Education Needs Education Needs: Patient Medication, Patient Diagnosis/Disease Process, Patient Coping Skills, Patient Placement options - Discharge Discharge Criteria: Free of Suicidal thoughts, Normal sleep pattern, Ability to care for self, No longer exhibiting s/s of withdrawal, Reduction of target symptoms Discharge to:: Home, With Family - Treatment Team Participation Discussed with Family/SO: No Was Patient/Family/SO present at Treatment Team Meeting: Yes <William Ba - Last Filed: 02/13/18 16:53> - Diagnosis (1) Schizoaffective disorder, bipolar type Status: Acute Interventions: 02/13/18 16:52 * Assess/adjust medications daily and /or as needed * See patient on an individual basis 7x/week to assess symptoms of depression * Monitor for side effects & effectiveness of medications (2) Opioid use disorder, severe, dependence Status: Acute Interventions: 02/13/18 16:53 * Assess 7x/week regarding severity of withdrawal * Educate regarding risks, benefits, side effects and alternatives of medications * Use Motivational Interviewing for abstinence * Use CBT for relapse prevention * Medication management for withdrawal symptoms * Encourage medication assisted treatment
[2018-02-12] MEDS: Divalproex 250 mg DR Tab PO SCH ×2 (10:11→17:11)
[2018-02-12] MEDS: (Novolog) Insulin Aspart, Recombinant 100 u/ml 10 ml vial SC SCH ×2 (12:14→16:09)
--- NOTE | 2018-02-12 15:50 | PCM.PSYCH ---
Initial Psychiatric Evaluation - Initial Psychiatric Evaluation Type of Admission: Voluntary Legal Status: Capacity Chief Complaint (in patient's own words): I started hearing voices and also relapsed on heroin. History of Present Illness and Precipitating Events: Patient is a 52 years old, single, unemployed, on disability -[place] male with history of schizoaffective disorder bipolar type and opiate use disorder was admitted due to worsening psychosis and withdrawing from heroin. Patient reported that he was noncompliant for last 5 days. He started feeling more depressed with decreased sleep and appetite, lost about 5 pounds over 2 weeks. Started having suicidal ideations. No homicidal ideations. Patient has history of 3-4 previous suicidal attempts by overdose on heroin and was admitted in the hospital. Also started hearing voices, calling his name and telling him bad things. History of manic episodes in the past. Also relapsed on heroin, was using 7 bags of heroin daily. Last used yesterday, 4 bags. Patient started using heroin at 18 years of age, increased gradually. His longest period of abstinence was 15 years from [id number] 1 he was in [facility]. According to patient he attempted to kill his . Also smokes one pack of cigarettes daily. Refuses to take nicotine patch. Patient was born in [place] and has high school graduation. He is not working , on disability. Single, has 1 grown up daughter. Lives with daughter. He is supported by his daughter and friends His height is 5 feet 9 inches and weight is 250 pounds. Current Medications: Active Medications Generic Name Dose Route Start Last Admin Trade Name Freq PRN Reason Stop Dose Admin Albuterol 1 puff 02/11/18 22:41 Ventolin Hfa 90 Mcg/Actuation (8 G) INH RQ6 PRN Shortness of Breath Benztropine Mesylate 1 mg 02/12/18 10:00 02/12/18 10:11 Cogentin PO 1 mg DAILY VALERIA Administration Clonidine HCl 0.1 mg 02/12/18 00:40 Catapres PO Q8 PRN COWS Score More or Equal to 5 Dicyclomine HCl 10 mg 02/11/18 21:49 02/12/18 14:08 Bentyl PO 10 mg Q6H PRN Administration abdominal cramps Divalproex Sodium 250 mg 02/11/18 22:00 02/12/18 10:[address] PO 250 mg BID VALERIA Administration Gabapentin 300 mg 02/12/18 11:45 02/12/18 11:36 Neurontin PO 300 mg BID VALERIA Administration Insulin Aspart 10 unit 02/12/18 12:00 02/12/18 12:14 Novolog SC 10 u AC VALERIA Administration Loperamide HCl 2 mg 02/12/18 00:40 Imodium PO Q8 PRN Diarrhea Metformin HCl 1,000 mg 02/12/18 10:00 02/12/18 10:11 Glucophage PO 1,000 mg BIDCC VALERIA Administration Methadone HCl 15 mg 02/13/18 10:00 Methadone PO 02/16/18 09:59 Q24H VALERIA Taper Ondansetron HCl 4 mg 02/12/18 00:40 Zofran Tab PO Q8 PRN Nausea/Vomiting Risperidone 2 mg 02/12/18 10:15 Risperdal Tab PO BID VALERIA Trazodone HCl 50 mg 02/11/18 22:15 02/11/18 22:27 Desyrel PO 50 mg HS PRN Administration Insomnia Past Psychiatric History - Past Psychiatric History Previous Treatment History: Inpatient History of Abuse: None reported History of ETOH/Drug Use: See HPI History of Family Illness: Reported mother has history of heroin, cocaine and alcohol use. Pertinent Medical Hx (Current Medical&Sleep Prob, Allergies): Allergies Allergy/AdvReac Type Severity Reaction Status Date / Time No Known Allergies Allergy Verified 02/21/17 09:30 Insulin Aspart, Recombinant [Novolog] 10 unit SQ TID 01/27/18 Benztropine [Cogentin] 1 mg PO BID #60 tab 02/03/18 Divalproex [Depakote DR] 250 mg PO BID #60 tcp 02/03/18 Gabapentin [Neurontin] 300 mg PO BID #60 cap 02/03/18 risperiDONE [RisperDAL Tab] 2 mg PO BID #60 tab 02/03/18 traZODone [Desyrel] 50 mg PO HS #30 tab 02/03/18 Diabetes mellitus. Obesity. Review of Systems - Psychiatric Psychiatric: As Per HPI, Auditory Hallucinations, Depression, Paranoia Mental Status Examination - Personal Presentation Personal Presentation: Looks stated age - Affect Affect: Depressed - Motor Activity Motor Activity: Calm - Reliability in Providing Information Reliability in Providing Information: Fair - Speech Speech: Relevant - Mood Mood: Depressed - Formal Thought Process Formal Thought Process: No Impairment - Hallucinations/Delusions Hallucinations: Other (None reported at the time of evaluation) Delusions: Other - Obsessions/Compulsions Obsessions: None Compulsions: None - Cognitive Functions Orientation: Person, Place, Situation, Time Sensorium: Alert Attention/Concentration: Attentive Abstract Thinking: [place] Estimate of Intelligence: Average Judgement: Intact, as evidence by: Insight regarding need for hospitalization Memory: Recent intact, as evidence by: Ability to recall events of the day, Remote intact, as evidenced by: Ability to recall historical events - Risk Risk: Withdrawal, Diminished functioning - Strength & Assets Inventory Strength & Assets Inventory: Family support, Cooperative - Limitations Limitations: Other DSM 5 DX - DSM 5 DSM 5 Diagnosis: Schizoaffective disorder bipolar type. Opiate use disorder severe - Recommended/Plan of Treatment Treatment Recommendations and Plan of Treatment: Patient education. Supportive therapy. CBT for relapse prevention. [place] for abstinence. We will start methadone taper for opiate withdrawal symptoms. We'll start Risperdal and other when necessary medications. Projected ELOS: 8-10 days - Smoking Cessation Smoking Cessation Initiated: No Reason for not providing: Patient refused
[2018-02-13] MEDS: (Novolog) Insulin Aspart, Recombinant 100 u/ml 10 ml vial SC SCH ×3 (08:12→16:58)
[2018-02-13] MEDS: Divalproex 250 mg DR Tab PO SCH ×2 (09:10→16:59)
--- NOTE | 2018-02-13 18:53 | PCM.PYCHPN ---
Psychiatric Progress Note - Psychiatric Progress Note Patient seen today, length of contact: 15 minutes Patient Chief Complaint: I'm feeling little better but still have racing thoughts. Problems Identified/Issues Discussed: Patient seen, chart reviewed, case discussed with the staff. Issues related to illness and treatment were discussed with the patient and staff. Tolerating treatment very well without any side effects. Compliant with treatment. Reported feeling little better with some racing thoughts. Calm and cooperative. Aftercare discussed with the patient. Risk and benefits of medications were discussed with the patient. Patient understood and agreed. At the time of evaluation, patient was awake alert oriented 3, had no delusions , no auditory or visual hallucinations, no suicidal ideations or homicidal ideations. Medical Problems: Diabetes mellitus Diagnostic Results: Reviewed DSM 5 Symptoms Update: Improvement with treatment Medication Change: No Medical Record Reviewed: Yes Mental Status Examination - Cognitive Function Orientation: Person, Place, Situation, Time Memory: Intact Attention: WNL Concentration: WNL Association: WNL Fund of Knowledge: WNL Decription of patient's judgement and insights: Fair - Mood Mood: Depressed - Affect Affect: Flat, Depressed - Speech Speech: Appropriate - Formal Thought Process Formal Thought Process: Paranoia (Less than before) - Suicidal Ideation Suicidal Ideation: No - Homicidal Ideation Homicidal Ideation: No Goal/Treatment Plan - Goal/Treatment Plan Need for Continued Stay: Remain at risks for inpatient hospitalization, Discharge may exacerbated symptoms, Severe functional impairment Progress Toward Problem(s) and Goals/Treatment Plan: Patient education. Supportive therapy. CBT for relapse prevention. PR for abstinence. Continue treatment as before. Estimated Date of D/C: 02/16/18 - Smoking Cessation Smoking Cessation Initiated: No Reason for not providing: Patient refused
[2018-02-14] MEDS: Albuterol HFA 90 mcg/actuation (8 g) INH PRN (05:23)
[2018-02-14] MEDS: (Novolog) Insulin Aspart, Recombinant 100 u/ml 10 ml vial SC SCH ×3 (07:53→16:46)
[2018-02-14] MEDS: Divalproex 250 mg DR Tab PO SCH ×2 (09:31→17:13)
--- NOTE | 2018-02-14 14:35 | PCM.PYCHPN ---
Psychiatric Progress Note - Psychiatric Progress Note Patient seen today, length of contact: 15 minutes Patient Chief Complaint: I'm feeling little better but still have racing thoughts. Problems Identified/Issues Discussed: Patient seen, chart reviewed, case discussed with the staff. Issues related to illness and treatment were discussed with the patient and staff. Tolerating treatment very well without any side effects. Compliant with treatment. Reported feeling much better. Calm and cooperative. Aftercare discussed with the patient. Risk and benefits of medications were discussed with the patient. Patient understood and agreed. At the time of evaluation, patient was awake alert oriented 3, had no delusions , no auditory or visual hallucinations, no suicidal ideations or homicidal ideations. Medical Problems: Diabetes mellitus Diagnostic Results: Reviewed DSM 5 Symptoms Update: Improving with treatment Medication Change: No Medical Record Reviewed: Yes Mental Status Examination - Cognitive Function Orientation: Person, Place, Situation, Time Memory: Intact Attention: WNL Concentration: WNL Association: [facility] Fund of Knowledge: [facility] Decription of patient's judgement and insights: Fair - Mood Mood: Depressed (Much less than before) - Affect Affect: Other (Appropriate) - Speech Speech: Appropriate - Formal Thought Process Formal Thought Process: No Impairment Psychotic Thoughts and Behaviors: None - Suicidal Ideation Suicidal Ideation: No - Homicidal Ideation Homicidal Ideation: No Goal/Treatment Plan - Goal/Treatment Plan Need for Continued Stay: Remain at risks for inpatient hospitalization, Discharge may exacerbated symptoms, Severe functional impairment Progress Toward Problem(s) and Goals/Treatment Plan: Patient education. Supportive therapy. CBT for relapse prevention. [facility] for abstinence. Continue treatment as before. Patient wants to go to [facility] for follow-up care after discharge from the hospital. Estimated Date of D/C: 02/16/18 - Smoking Cessation Smoking Cessation Initiated: No
[2018-02-15 06:35] VITALS: RESP 20
[2018-02-15] MEDS: (Novolog) Insulin Aspart, Recombinant 100 u/ml 10 ml vial SC SCH ×3 (08:12→16:51)
[2018-02-15] MEDS: Divalproex 250 mg DR Tab PO SCH ×3 (09:04→17:09)
--- NOTE | 2018-02-15 17:41 | PCM.PYCHPN ---
Psychiatric Progress Note - Psychiatric Progress Note Patient seen today, length of contact: 15 minutes Patient Chief Complaint: I'm feeling much better. Problems Identified/Issues Discussed: Patient seen, chart reviewed, case discussed with the staff. Issues related to illness and treatment were discussed with the patient and staff. Tolerating treatment very well without any side effects. Compliant with treatment. Reported feeling much better. Calm and cooperative. Aftercare discussed with the patient. Risk and benefits of medications were discussed with the patient. Patient understood and agreed. At the time of evaluation, patient was awake alert oriented 3, had no delusions , no auditory or visual hallucinations, no suicidal ideations or homicidal ideations. Medical Problems: Diabetes mellitus Diagnostic Results: Reviewed DSM 5 Symptoms Update: Improving with treatment Medication Change: No Medical Record Reviewed: Yes Mental Status Examination - Cognitive Function Orientation: Person, Place, Situation, Time Memory: Intact Attention: WNL Concentration: WNL Association: [facility]N Fund of Knowledge: [facility] Decription of patient's judgement and insights: Fair - Mood Mood: Depressed (Much less than before) - Affect Affect: Other (Appropriate) - Speech Speech: Appropriate - Formal Thought Process Formal Thought Process: No Impairment Psychotic Thoughts and Behaviors: None - Suicidal Ideation Suicidal Ideation: No - Homicidal Ideation Homicidal Ideation: No Goal/Treatment Plan - Goal/Treatment Plan Need for Continued Stay: Remain at risks for inpatient hospitalization, Discharge may exacerbated symptoms, Severe functional impairment Progress Toward Problem(s) and Goals/Treatment Plan: Patient education. Supportive therapy. CBT for relapse prevention. [place] for abstinence. Continue treatment as before. Patient wants to go to [facility] for follow-up care after discharge from the hospital. Estimated Date of D/C: 02/16/18 - Smoking Cessation Smoking Cessation Initiated: No
[2018-02-15] MEDS: Albuterol HFA 90 mcg/actuation (8 g) INH PRN (18:13)
[2018-02-16 06:06] VITALS: BP 112/70; PULSE 70; TEMP 97.6; O2SAT 100
[2018-02-16] MEDS: (Novolog) Insulin Aspart, Recombinant 100 u/ml 10 ml vial SC SCH ×3 (08:31→11:55)
[2018-02-16] MEDS: Divalproex 250 mg DR Tab PO SCH (09:55)
--- NOTE | 2018-02-16 11:12 | PCM.PYCHDC ---
Mental Status Examination - Mental Status Examination Orientation: Person, Place, Situation, Time Memory: Intact Mood: Neutral Affect: Constricted Speech: Soft Attention: WNL Concentration: WNL Association: WNL Fund of Knowledge: WNL Formal Thought Process: No Impairment Description of patient's judgement and insight: good, fair Psychotic Thoughts and Behaviors: denies any AVH Suicidal Ideation: No Current Homicidal Ideation?: No Discharge Summary - Discharge Note Reason for Hospitalization: Patient is a 52 years old, single, unemployed, on disability -[place] male with history of schizoaffective disorder bipolar type and opiate use disorder was admitted due to worsening psychosis and withdrawing from heroin. Patient reported that he was noncompliant for last 5 days. He started feeling more depressed with decreased sleep and appetite, lost about 5 pounds over 2 weeks. Started having suicidal ideations. No homicidal ideations. Patient has history of 3-4 previous suicidal attempts by overdose on heroin and was admitted in the hospital. Also started hearing voices, calling his name and telling him bad things. History of manic episodes in the past. Also relapsed on heroin, was using 7 bags of heroin daily. Last used yesterday, 4 bags. Patient started using heroin at 18 years of age, increased gradually. 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 According to patient he attempted to kill his . Also smokes one pack of cigarettes daily. Refuses to take nicotine patch. Patient was born in [place] and has high school graduation. He is not working , on disability. Single, has 1 grown up daughter. Lives with daughter. He is supported by his daughter and friends His height is 5 feet 9 inches and weight is 250 pounds. Laboratory Data: Abnormal Lab Results 02/15/18 02/15/18 02/16/18 11:25 16:07 07:38 POC Glucose (mg/dL) 110 132 H 135 H Consultations:: List each consultation separately and include: 1. Reason for request. 2. Findings. 3. Follow-up Summary of Hospital Course include:: 1. Description of specific treatment plan utilized for patients during their course of treatmen. 2. Summarize the time- course for resolution of acute symptoms and/or regressed behaviors. 3. Describe issues identified and worked on during hospitalization. 4. Describe medication utilized. 5. Describe medical problems identified and treated. 6. Reassessment of suicide risk - Final Diagnosis (DSM 5) Condition upon Discharge: STABLE DSM 5: Schizoaffective disorder bipolar type. Opiate use disorder severe Disposition: HOME/ ROUTINE Prescriptions/Medication Reconciliation: Benztropine [Cogentin] 1 mg PO BID #60 tab Divalproex [Depakote DR] 250 mg PO BID #60 tcp Gabapentin [Neurontin] 300 mg PO BID #60 cap risperiDONE [RisperDAL Tab] 2 mg PO BID #60 tab traZODone [Desyrel] 50 mg PO HS PRN #30 tab PRN Reason: Insomnia
== END 2018-02-16 12:00 | disposition home or self-care (01) | DRG 430 ==
LOC: C.ER 17:17 → C.5E 20:38
PROVIDERS: ADMIT Psychiatry & Neurology Psychiatry; ATTEND Psychiatry & Neurology Psychiatry
PROC: GZHZZZZ Group Psychotherapy (ICD-10-PCS; principal; 2018-02-11)
DX: F25.0 Schizoaffective disorder, bipolar type (principal); F11.20 Opioid dependence, uncomplicated; I10 Essential (primary) hypertension; F17.210 Nicotine dependence, cigarettes, uncomplicated; E78.00 Pure hypercholesterolemia, unspecified; E11.9 Type 2 diabetes mellitus without complications; Z91.19 Patient's noncompliance with other medical treatment and regimen

== ENCOUNTER 2018-02-20 13:24 | Emergency (ER) | payer MEDICAID ==
[2018-02-20 13:25] VITALS: BMI 27.6
[2018-02-20 14:22] LABS: BASO # 0.1 K/uL (0.0-0.2); HEMOGLOBIN 12.9 g/dL (12.0-18.0); LYMPH # 1.3 K/uL (1.0-4.3); MONO # 0.8 K/uL (0.0-0.8); RBC 4.2 Mil/uL (4.40-5.90)
[2018-02-20 14:24] LABS: BASO % 0.9 % (0.0-2.0); EOS % 0.5 % (0.0-4.0); MEAN CELL VOLUME 89.2 fL (80.0-94.0); MEAN CORPUSCULAR HEMOGLOBIN 30.6 pg (27.0-31.0); MEAN CORPUSCULAR HGB CONC 34.3 g/dL (33.0-37.0); MEAN PLATELET VOLUME 7.2 fL (7.2-11.7); MONO % 11.5 % (0.0-10.0); NEUT # 4.5 K/uL (1.8-7.0); NEUT % 67.1 % (50.0-75.0); RED CELL DISTRIBUTION WIDTH 13.1 % (11.5-14.5); WHITE BLOOD COUNT 6.7 K/uL (4.8-10.8)
[2018-02-20 14:31] VITALS: BP 126/86; PULSE 79; RESP 18; TEMP 98.4; O2SAT 98
[2018-02-20 14:36] LABS: ACETAMINOPHEN < 10.0 ug/mL (10.0-30.0); ALB/GLOB RATIO 1.3 (1.0-2.1); ALBUMIN 4.4 g/dL (3.5-5.0); ALT/SGPT 54 U/L (21-72); AST/SGOT 37 U/L (17-59); BLOOD UREA NITROGEN 13 mg/dL (9-20); CALCIUM 8.6 mg/dl (8.6-10.4); GFR AFRICAN-AMERICAN > 60; GFR NON-AFRICAN AMERICAN > 60; SALICYLATE < 1.0 mg/dL 1
--- NOTE | 2018-02-20 15:21 | C.PDOC ---
History Of Present Illness 52yo male, comes to ER stating he has been having auditory hallucinations telling him to hurt himself by taking pills, present for the past couple days. Patient states due to the voices, he threw out his Trazadone and also reports he has not received his monthly injections. He denies any homicidal ideation. He does admit to using heroin, states he snorts 4-5 bags per day and feels as if he is withdrawing. Time Seen by Provider: 02/20/18 13:49 Chief Complaint (Nursing): Psychiatric Evaluation History Per: Patient History/Exam Limitations: no limitations Onset/Duration Of Symptoms: Days Current Symptoms Are (Timing): Still Present Associated Symptoms: Suicidal Thoughts Additional History Per: Patient Past Medical History Reviewed: Historical Data, Nursing Documentation, Vital Signs Vital Signs: Last Vital Signs Temp 98.4 F 02/20/18 14:30 Pulse 79 02/20/18 14:30 Resp 18 02/20/18 14:30 BP 126/86 02/20/18 14:30 Pulse Ox 98 02/20/18 18:41 - Medical History PMH: Bipolar Disorder, Diabetes, HTN, Hypercholesterolemia, Schizophrenia Comment Only: Hepatitis (Patient denied), HIV (Patient denied), Seizures ( Patient denied), Sexually Transmitted Disease (Patient denied) Surgical History: No Surg Hx - [facility] DETOXIFICATION SERVICES FOR SUBSTANCE ABUSE TREATMENT (01/27/18) [facility] FOR SUBSTANCE ABUSE TREATMENT, PSYCHOEDUCATION (01/27/18) [facility] FOR SUBSTANCE ABUSE, COGNITIVE BEHAVIORAL (01/27/18) GROUP PSYCHOTHERAPY (02/11/18) INDIV PSYCHOTHERAPY FOR SUBSTANCE ABUSE TREATMENT, SUPPORT (01/27/18) INDIV PSYCHOTHERAPY FOR SUBSTANCE ABUSE, COGNITIV BEHAVIORAL (01/27/18) INDIV PSYCHOTHERAPY FOR SUBSTANCE ABUSE, PSYCHOEDUCATION (01/27/18) INDIVIDUAL PSYCHOTHERAPY, COGNITIVE-BEHAVIORAL (01/27/18) INDIVIDUAL PSYCHOTHERAPY, SUPPORTIVE (01/27/18) MEDS MGMT FOR SUBSTANCE ABUSE TREATMENT, METHADONE MAINT (02/21/17) Family History: States: Unknown Family Hx - Social History Hx Alcohol Use: No Hx Substance Use: Yes - Immunization History Hx Tetanus Toxoid Vaccination: No Hx Influenza Vaccination: Yes Hx Pneumococcal Vaccination: No Review Of Systems Constitutional: Negative for: Fever, Chills Cardiovascular: Negative for: Chest Pain Respiratory: Negative for: Shortness of Breath Gastrointestinal: Negative for: Abdominal Pain Psych: Positive for: Suicidal ideation (hears voices telling him to hurt self). Negative for: Other (homicidal ideation) Physical Exam - Physical Exam Appears: Non-toxic Skin: Warm, Dry Head: Atraumatic, Normacephalic Eye(s): bilateral: Normal Inspection Oral Mucosa: Moist Teeth: Other (poor dentition) Neck: Normal ROM, Supple Chest: Symmetrical Cardiovascular: Rhythm Regular Respiratory: Normal Breath Sounds Gastrointestinal/Abdominal: Soft, No Tenderness Extremity: Normal ROM Neurological/Psych: Oriented x3, Normal Speech, Normal Cognition, Normal Motor, Normal Sensation Gait: Steady ED Course And Treatment - Laboratory Results Result Diagrams: 02/20/18 14:19 02/20/18 14:19 O2 Sat by Pulse Oximetry: 98 (RA) Pulse Ox Interpretation: Normal Medical Decision Making Medical Decision Making: Impression: Auditory hallucinations Plan: -- Labs -- UDS -- UA -- Reglan 10mg PO -- Tylenol 650mg PO -- Crisis evaluation 1654 discussed with crisis team. per Dr Foster, pt may be discharged, with f/u at [facility] next and should take risperidal as prescribed. Disposition Discussed With : Robin Foster - Disposition Disposition: HOME/ ROUTINE Disposition Time: 16:55 Condition: STABLE Additional Instructions: Please take your risperidal as prescribed. Follow up at [facility] next Friday as already scheduled. Return to ER for any worse symptoms. Instructions: Schizophrenia (DC) Forms: [facility] ([place]), General Discharge Instructions - Clinical Impression Clinical Impression: Paranoid schizophrenia - Scribe Statement The provider has reviewed the documentation as recorded by the Emma Savage Provider Attestation All medical record entries made by the Emma were at my direction and personally dictated by me. I have reviewed the chart and agree that the record accurately reflects my personal performance of the history, physical exam, medical decision making, and the department course for this patient. I have also personally directed, reviewed, and agree with the discharge instructions and disposition.
[2018-02-20 15:24] LABS: SQUAMOUS EPITHIAL < 1 /hpf (0-5); URINE BACTERIA RARE (<OCC); URINE BILIRUBIN NEGATIVE (NEGATIVE); URINE BLOOD NEGATIVE (NEGATIVE); URINE CLARITY Clear (Clear); URINE COLOR Yellow (YELLOW); URINE GLUCOSE (UA) 3+ mg/dL (Normal); URINE LEUKOCYTE ESTERASE NEG Leu/uL (Negative); URINE PROTEIN 1+ mg/dL (NEGATIVE)
[2018-02-20 15:52] LABS: BARBITURATES, UR NEGATIVE (NEGATIVE); BENZODIAZEPINES, UR NEGATIVE (NEGATIVE); PHENCYCLIDINE, UR NEGATIVE (NEGATIVE)
[2018-02-20 16:11] LABS: OPIATES, UR POSITIVE (NEGATIVE)
== END 2018-02-20 17:07 | disposition home or self-care (01) ==
LOC: C.ER 13:24
DX: F20.0 Paranoid schizophrenia (principal)

== ENCOUNTER 2018-03-23 18:34 | Emergency (ER) | payer MEDICAID ==
[2018-03-23 18:34] VITALS: BMI 27.6
[2018-03-23 19:40] LABS: BASO # 0.1 K/uL (0.0-0.2); BASO % 1.2 % (0.0-2.0); EOS # 0.1 K/uL (0.0-0.7); EOS % 1.3 % (0.0-4.0); HEMOGLOBIN 13.7 g/dL (12.0-18.0); LYMPH # 1.7 K/uL (1.0-4.3); LYMPH % 25.1 % (20.0-40.0); MEAN CORPUSCULAR HEMOGLOBIN 31.1 pg (27.0-31.0); MEAN CORPUSCULAR HGB CONC 33.8 g/dL (33.0-37.0); MEAN PLATELET VOLUME 7.4 fL (7.2-11.7); MONO # 0.8 K/uL (0.0-0.8); MONO % 11.3 % (0.0-10.0); NEUT # 4.2 K/uL (1.8-7.0); NEUT % 61.1 % (50.0-75.0); NRBC % 0.3 % (0.0-2.0); RBC 4.4 Mil/uL (4.40-5.90); RED CELL DISTRIBUTION WIDTH 13.8 % (11.5-14.5); WHITE BLOOD COUNT 6.9 K/uL (4.8-10.8)
[2018-03-23 19:48] LABS: SQUAMOUS EPITHIAL < 1 /hpf (0-5); URINE BILIRUBIN NEGATIVE (NEGATIVE); URINE BLOOD NEGATIVE (NEGATIVE); URINE CLARITY Clear (Clear); URINE GLUCOSE (UA) NORMAL (Normal); URINE LEUKOCYTE ESTERASE NEG Leu/uL (Negative); URINE PROTEIN 1+ mg/dL (NEGATIVE)
[2018-03-23 19:54] LABS: URINE COLOR YELLOW (YELLOW)
[2018-03-23 20:09] LABS: ALB/GLOB RATIO 1.2 (1.0-2.1); ALBUMIN 4.4 g/dL (3.5-5.0); ALT/SGPT 43 U/L (21-72); AST/SGOT 44 U/L (17-59); BLOOD UREA NITROGEN 8 mg/dL (9-20); CALCIUM 9.8 mg/dl (8.6-10.4); GFR AFRICAN-AMERICAN > 60; GFR NON-AFRICAN AMERICAN > 60
[2018-03-23 20:22] LABS: BARBITURATES, UR NEGATIVE (NEGATIVE); BENZODIAZEPINES, UR NEGATIVE (NEGATIVE); PHENCYCLIDINE, UR NEGATIVE (NEGATIVE)
[2018-03-23 20:23] LABS: OPIATES, UR POSITIVE (NEGATIVE)
--- NOTE | 2018-03-23 20:28 | C.PDOC ---
History Of Present Illness 53 y/o male, with history of paranoia and schizophrenia, presents to the emergency department with complaints of seeing things and hearing voices. Patient ran out of medication a few days ago. Patient reports having suicidal and homicidal ideation but with no actual plan. Denies physical complaints at this time. Time Seen by Provider: 03/23/18 20:27 Chief Complaint (Nursing): Psychiatric Evaluation History Per: Patient History/Exam Limitations: no limitations Onset/Duration Of Symptoms: Days Current Symptoms Are (Timing): Still Present Suicide/Self Injury Attempted (Context): None Modifying Factor(s): None Severity: None Pain Scale Rating Of: 0 Associated Symptoms: Paranoia, Suicidal Thoughts, Other (Homicidal ideation). denies: Suicidal Plan Involuntary Hold By: None Recent travel outside of the [place]: No Past Medical History Reviewed: Historical Data, Nursing Documentation, Vital Signs Vital Signs: Last Vital Signs Temp 98.8 F 03/23/18 21:20 Pulse 77 03/23/18 21:20 Resp 17 03/23/18 21:20 BP 128/81 03/23/18 21:20 Pulse Ox 97 03/23/18 22:35 - Medical History PMH: Bipolar Disorder, Diabetes, HTN, Hypercholesterolemia, Schizophrenia Comment Only: Hepatitis (Patient denied), HIV (Patient denied), Seizures ( Patient denied), Sexually Transmitted Disease (Patient denied) - [facility] Procedures DETOXIFICATION SERVICES FOR SUBSTANCE ABUSE TREATMENT (01/27/18) GROUP STRIP DEBURRER FOR SUBSTANCE ABUSE TREATMENT, PSYCHOEDUCATION (01/27/18) GROUP STRIP DEBURRER FOR SUBSTANCE ABUSE, COGNITIVE BEHAVIORAL (01/27/18) GROUP PSYCHOTHERAPY (02/11/18) INDIV PSYCHOTHERAPY FOR SUBSTANCE ABUSE TREATMENT, SUPPORT (01/27/18) INDIV PSYCHOTHERAPY FOR SUBSTANCE ABUSE, COGNITIV BEHAVIORAL (01/27/18) INDIV PSYCHOTHERAPY FOR SUBSTANCE ABUSE, PSYCHOEDUCATION (01/27/18) INDIVIDUAL PSYCHOTHERAPY, COGNITIVE-BEHAVIORAL (01/27/18) INDIVIDUAL PSYCHOTHERAPY, SUPPORTIVE (01/27/18) MEDS MGMT FOR SUBSTANCE ABUSE TREATMENT, METHADONE MAINT (02/21/17) Family History: States: No Known Family Hx - Social History Hx Alcohol Use: No Hx Substance Use: Yes - Immunization History Hx Tetanus Toxoid Vaccination: Yes Hx Influenza Vaccination: Yes Hx Pneumococcal Vaccination: Yes Review Of Systems Constitutional: Negative for: Fever, Chills Cardiovascular: Negative for: Chest Pain, Palpitations Respiratory: Negative for: Shortness of Breath Gastrointestinal: Negative for: Nausea, Vomiting, Diarrhea Neurological: Negative for: Weakness, Numbness Psych: Positive for: Suicidal ideation, Other (Homicidal ideation) Physical Exam - Physical Exam Appears: Non-toxic, Other (Pleasant, Cooperative) Skin: Warm, Dry Head: Normacephalic Eye(s): bilateral: Normal Inspection Oral Mucosa: Moist Neck: Trachea Midline, Supple Chest: Symmetrical, No Tenderness Cardiovascular: Rhythm Regular Respiratory: No Rales, No Rhonchi, No Wheezing Gastrointestinal/Abdominal: Soft, No Tenderness Neurological/Psych: Oriented x3 ED Course And Treatment - Laboratory Results Result Diagrams: 03/23/18 19:36 03/23/18 19:36 ECG: Interpreted By Me, Viewed By Me ECG Rhythm: Sinus Rhythm (76), Nonspecific Changes O2 Sat by Pulse Oximetry: 97 (Room air) Pulse Ox Interpretation: Normal - Radiology CXR: Interpreted by Me, Viewed By Me CXR Interpretation: No: Infiltrates, Fracture, Pnemothorax Progress Note: EKG, blood work, CXR, and urinalysis ordered. 10:30 PM Pt is medically cleared for transfer to [facility]. was accepted by dr perrin at [facility] Disposition Counseled Patient/Family Regarding: Studies Performed, Diagnosis - Disposition Disposition: OTHER INSTITUTION Disposition Time: 20:28 Condition: FAIR Forms: [facility] (Belarusian) - Clinical Impression Clinical Impression: Paranoid schizophrenia - Scribe Statement The provider has reviewed the documentation as recorded by the Scribpatrizia Price All medical record entries made by the Gloriaibpatrizia were at my direction and personally dictated by me. I have reviewed the chart and agree that the record accurately reflects my personal performance of the history, physical exam, medical decision making, and the department course for this patient. I have also personally directed, reviewed, and agree with the discharge instructions and disposition.
[2018-03-23 23:29] VITALS: BP 124/83; PULSE 84; RESP 18; TEMP 98.6; O2SAT 98
--- NOTE | 2018-03-24 10:26 | RAD ---
Chest x-ray single frontal view History: Psychiatric clearance. Comparison: 02/21/2017 Findings Mild venous congestion. Right hilar prominence. Tortuous aorta. Degenerative changes in the spine. Impression: Mild venous congestion. Right hilar prominence. Tortuous aorta.
--- NOTE | 2018-03-24 11:59 | CARD ---
APPROVED REPORT Date of service: 03/23/2018 EKG Measurement Heart [id number] <Conclusion> Normal sinus rhythm Normal ECG
== END 2018-03-23 23:29 | disposition short-term general hospital (02) ==
LOC: C.ER 18:34
DX: F20.0 Paranoid schizophrenia (principal); E11.9 Type 2 diabetes mellitus without complications; I10 Essential (primary) hypertension; E78.00 Pure hypercholesterolemia, unspecified

== ENCOUNTER 2018-05-06 17:13 | Inpatient (IN) | payer MEDICAID ==
[2018-05-06 17:13] VITALS: BMI 27.6
[2018-05-06 17:59] LABS: BASO % 0.4 % (0.0-2.0); EOS % 0.3 % (0.0-4.0); HEMOGLOBIN 13.9 g/dL (12.0-18.0); LYMPH # 1.3 K/uL (1.0-4.3); LYMPH % 23.7 % (20.0-40.0); MEAN CORPUSCULAR HEMOGLOBIN 31.2 pg (27.0-31.0); MEAN CORPUSCULAR HGB CONC 34.3 g/dL (33.0-37.0); MEAN PLATELET VOLUME 7.3 fL (7.2-11.7); MONO # 0.5 K/uL (0.0-0.8); MONO % 9.8 % (0.0-10.0); NEUT # 3.6 K/uL (1.8-7.0); NEUT % 65.8 % (50.0-75.0); NRBC % 0.1 % (0.0-2.0); RBC 4.47 Mil/uL (4.40-5.90); RED CELL DISTRIBUTION WIDTH 14.2 % (11.5-14.5); WHITE BLOOD COUNT 5.4 K/uL (4.8-10.8)
[2018-05-06 18:11] LABS: ALB/GLOB RATIO 1.3 (1.0-2.1); ALBUMIN 4.7 g/dL (3.5-5.0); ALT/SGPT 27 U/L (21-72); AST/SGOT 34 U/L (17-59); BLOOD UREA NITROGEN 9 mg/dL (9-20); CALCIUM 10.1 mg/dl (8.6-10.4); GFR NON-AFRICAN AMERICAN > 60
--- NOTE | 2018-05-06 18:33 | C.PDOC ---
History Of Present Illness 53-year-old male, PMHx includes schizophrenia, presents to the emergency department with complaints of auditory hallucinations. Patient is currently on Seraquil, and is compliant with his medication. States he is hearing voices telling him to hurt himself and others. Patient uses Xanax, and Heroin. States he last used Heroin at 15:30 today. Patient notes associated loss of appetite and trouble sleeping. No other complaints at this time. Time Seen by Provider: 05/06/18 17:32 Chief Complaint (Nursing): Psychiatric Evaluation History Per: Patient History/Exam Limitations: no limitations Current Symptoms Are (Timing): Still Present Past Medical History Reviewed: Historical Data, Nursing Documentation, Vital Signs Vital Signs: Last Vital Signs Temp 97.9 F 05/06/18 17:24 Pulse 100 H 05/06/18 17:24 Resp 19 05/06/18 17:24 BP 116/79 05/06/18 17:24 Pulse Ox 96 05/06/18 17:24 - Medical History PMH: Bipolar Disorder, Diabetes, HTN, Hypercholesterolemia, Schizophrenia (paranoid schizophrenia) Denies: Chronic Kidney Disease Comment Only: Hepatitis (Patient denied), HIV (Patient denied), Seizures (Patient denied), Sexually Transmitted Disease (Patient denied) - [facility] Procedures DETOXIFICATION SERVICES FOR SUBSTANCE ABUSE TREATMENT (01/27/18) GROUP CAP INSPECTOR FOR SUBSTANCE ABUSE TREATMENT, PSYCHOEDUCATION (01/27/18) GROUP CAP INSPECTOR FOR SUBSTANCE ABUSE, COGNITIVE BEHAVIORAL (01/27/18) GROUP PSYCHOTHERAPY (03/23/18) INDIV PSYCHOTHERAPY FOR SUBSTANCE ABUSE TREATMENT, SUPPORT (01/27/18) INDIV PSYCHOTHERAPY FOR SUBSTANCE ABUSE, COGNITIV BEHAVIORAL (03/23/18) INDIV PSYCHOTHERAPY FOR SUBSTANCE ABUSE, PSYCHOEDUCATION (01/27/18) INDIVIDUAL PSYCHOTHERAPY, COGNITIVE-BEHAVIORAL (03/23/18) INDIVIDUAL PSYCHOTHERAPY, SUPPORTIVE (01/27/18) MEDS MGMT FOR SUBSTANCE ABUSE TREATMENT, METHADONE MAINT (02/21/17) Family History: States: No Known Family Hx - Social History Hx Alcohol Use: No Hx Substance Use: Yes (heroin, methadone, Xanax) - Immunization History Hx Tetanus Toxoid Vaccination: Yes Hx Influenza Vaccination: (unk) Hx Pneumococcal Vaccination: Yes Review Of Systems Constitutional: Negative for: Fever, Chills Respiratory: Negative for: Shortness of Breath Gastrointestinal: Negative for: Vomiting Psych: Positive for: Suicidal ideation (+auditory hallucinations. +homicidal ideation). Negative for: Psychosis Physical Exam - Physical Exam Appears: Non-toxic, No Acute Distress Skin: Warm, Dry, No Rash Head: Atraumatic, Normacephalic Eye(s): bilateral: Normal Inspection, PERRL, EOMI Nose: Normal Oral Mucosa: Moist Lips: Normal Appearing Neck: Normal ROM Cardiovascular: Rhythm Regular, No Murmur Respiratory: Normal Breath Sounds, No Accessory Muscle Use Gastrointestinal/Abdominal: Soft, No Tenderness Back: Normal Inspection Extremity: Normal ROM, No Deformity Neurological/Psych: Oriented x3, Normal Speech ED Course And Treatment - Laboratory Results Result Diagrams: 05/06/18 17:50 05/06/18 17:50 Lab Interpretation: No Acute Changes (UDS positive for opiates and benzos) O2 Sat by Pulse Oximetry: 96 Pulse Ox Interpretation: Normal (RA) Progress Note: Patient is medically cleared for psychiatric admission. Disposition - Disposition Disposition: HOSPITALIZED Disposition Time: 20:33 Condition: STABLE - POA Present On Arrival: None - Clinical Impression Clinical Impression: Paranoid schizophrenia - Scribe Statement The provider has reviewed the documentation as recorded by the Scribe (Kiki Bruce) Provider Attestation: All medical record entries made by the Scribe were at my direction and personally dictated by me. I have reviewed the chart and agree that the record accurately reflects my personal performance of the history, physical exam, medical decision making, and the department course for this patient. I have also personally directed, reviewed, and agree with the discharge instructions and disposition.
[2018-05-06 19:28] LABS: SQUAMOUS EPITHIAL 1 /hpf (0-5); URINE BACTERIA RARE (<OCC); URINE BILIRUBIN NEGATIVE (NEGATIVE); URINE BLOOD NEGATIVE (NEGATIVE); URINE CLARITY Clear (Clear); URINE COLOR Yellow (YELLOW); URINE GLUCOSE (UA) NORMAL (Normal); URINE LEUKOCYTE ESTERASE NEG Leu/uL (Negative); URINE PROTEIN 1+ mg/dL (NEGATIVE)
[2018-05-06 19:37] LABS: BARBITURATES, UR NEGATIVE (NEGATIVE); PHENCYCLIDINE, UR NEGATIVE (NEGATIVE)
[2018-05-06 19:41] LABS: BENZODIAZEPINES, UR POSITIVE (NEGATIVE); OPIATES, UR POSITIVE (NEGATIVE)
--- NOTE | 2018-05-06 21:46 | PCM.BM ---
<Shellie Love - Last Filed: 05/06/18 21:45> Treatment Plan Problems - Problems identified on initial assessmt Auditory Hallucinations Date Initiated: 05/06/18 Time Initiated: 21:45 Assessment reference: NA Status: Active Substance Abuse Date Initiated: 05/06/18 Time Initiated: 21:45 Assessment reference: NA Status: Active Treatment assets and liabiliti Patient Assests: adapts well, cooperative, resourceful, self-reliant, ADL independent, physically healthy, good support system, negotiates basic needs, cognitively intact Patient Liabilities: live alone, poor support system, substance abuse, medical problems - Milieu Protocol Maintain good personal hygiene: daily Encourage regular showers, daily Remind patient to perform daily oral care, daily Assist patient to perform ADL's Maintain personal safety: every shift Educate patient to report safety concerns to staff, every shift Monitor environment for contraband/sharps Medication safety: Monitor for expected outcome, potential side effects: every shift, Assess barriers to learning: every shift, Assess readiness for medication education: every shift <Kerry Smith - Last Filed: 05/11/18 15:23> Family Contact Family involvement: Patient does not wish Family/SO involvement Family contact: Patient declines to allow family contact at present - Goals for Treatment Patient goals for treatment: "I am going back to [facility]." Discharge/Continuing Care - Education Needs Education Needs: Patient Medication, Patient Diagnosis/Disease Process, Patient Coping Skills - Discharge Discharge Criteria: Free of Suicidal thoughts, Free of agitation, Normal sleep pattern, Ability to care for self, No longer exhibiting s/s of withdrawal, Reduction of target symptoms Discharge to:: Home, With Family - Treatment Team Participation Discussed with Family/SO: No Was Patient/Family/SO present at Treatment Team Meeting: Yes <Robin Foster - Last Filed: 05/12/18 10:15> - Diagnosis (1) Schizophrenia Status: Acute Interventions: 05/12/18 10:15 * Assess/adjust medications daily and /or as needed * See patient on an individual basis 7x/week to assess status of hallucinations * Discuss risks, benefits, side effects and alternatives of medications * (2) Opioid use disorder, severe, dependence Status: Acute Interventions: 05/12/18 10:15 * Assess 7x/week regarding severity of withdrawal * Educate regarding risks, benefits, side effects and alternatives of medications * Use Motivational Interviewing for abstinence * Use CBT for relapse prevention * Medication management for withdrawal symptoms * Encourage medication assisted treatment *
--- NOTE | 2018-05-07 13:42 | PCM.PSYCH ---
Addendum entered and electronically signed by Robin Foster MD 05/08/18 00:18: Pt seen with the resident. Agreed with the findings. Original Note: Initial Psychiatric Evaluation - Initial Psychiatric Evaluation Type of Admission: Voluntary Legal Status: Capacity History of Present Illness and Precipitating Events: Patient is a 53 year old single AAM, who was brought in by his cousin for complaints of command auditory hallucinations telling him to kill himself. Patient has a long history of schizophrenia. He has history of multiple inpatient psychiatric hospitalizations. He was last discharged from [facility] last month. As per him he stopped taking his meds and relapsed on heroin. He has been abusing almost 7 bags daily, last abuse immediately prior to admission. As per the patient he started hearing voices to hurt himself and started seeing shadows and became increasingly paranoid and delusional. His cousin brought him to the hospital for further evaluation after taking a knife away from him. He appeared very disorganized and internally preoccupied. He reports auditory and visual hallucinations and persecutory delusions. Patient was observed walking around, nodding out and not cooperating with anyone. He appears delusional and paranoid. He reports of withdrawal symptoms including joint pains, sweating, headache, sweating and nausea. He has history of OD attempt in 2016. He reports irritability and agitation. He also reports depressed mood and feelings of hopelessness. PMH: DM Current Medications: Active Medications Generic Name Dose Route Start Last Admin Trade Name Freq PRN Reason Stop Dose Admin Gabapentin 300 mg 05/07/18 14:00 Neurontin PO TID VALERIA Hydroxyzine HCl 50 mg 05/07/18 11:12 Atarax PO Q6H PRN Anxiety Ibuprofen 600 mg 05/07/18 11:12 Motrin Tab PO Q6H PRN Pain, moderate (4-7) Metformin HCl 1,000 mg 05/07/18 11:15 05/07/18 11:50 Glucophage PO 1,000 mg BID VALERIA Administration Olanzapine 5 mg 05/07/18 18:00 Zyprexa PO BID VALERIA Pneumococcal Polyvalent Vaccine 0.5 ml 05/08/18 10:00 Pneumovax 23 Vaccine IM 05/08/18 10:01 .ONCE ONE Quetiapine Fumarate 200 mg 05/06/18 22:00 05/06/18 21:28 Seroquel PO 200 mg HS VALERIA Administration Trazodone HCl 100 mg 05/07/18 11:12 Desyrel PO HS PRN Insomnia Past Psychiatric History - Past Psychiatric History Previous Treatment History: Inpatient Pertinent Medical Hx (Current Medical&Sleep Prob, Allergies): Allergies Allergy/AdvReac Type Severity Reaction Status Date / Time No Known Allergies Allergy Verified 03/23/18 19:08 QUEtiapine [SEROquel] 50 mg PO BID 30 Days #60 tab 03/26/18 QUEtiapine [SEROquel] 200 mg PO HS 30 Days #30 tab 03/26/18 Gabapentin [Neurontin] 300 mg PO BID #60 cap 03/27/18 Invega IM Q30D 05/06/18 MetFORMIN [glucoPHAGE] 1,000 mg PO BID 05/06/18 Review of Systems - Psychiatric Psychiatric: Anhedonia, Anxiety, Auditory Hallucinations, Depression, Paranoia, Visual Hallucinations Mental Status Examination - Personal Presentation Personal Presentation: Looks older than stated age - Affect Affect: Depressed - Motor Activity Motor Activity: Calm - Reliability in Providing Information Reliability in Providing Information: Fair - Speech Speech: Disorganized, Relevant - Mood Mood: Depressed - Formal Thought Process Formal Thought Process: Hallucinations, Paranoia - Hallucinations/Delusions Hallucinations: Visual, Auditory Delusions: Persecution - Cognitive Functions Orientation: Person, Place, Situation, Time Sensorium: Alert Attention/Concentration: Easily distracted Abstract Thinking: [place] Estimate of Intelligence: Average Judgement: Intact, as evidence by: Insight regarding need for hospitalization Memory: Recent intact, as evidence by: Ability to recall events of the day - Risk Risk: Suicidal, Diminished functioning - Strength & Assets Inventory Strength & Assets Inventory: Family support, Cooperative DSM 5 DX - DSM 5 DSM 5 Diagnosis: Schizoaffective disorder bipolar type. Opiate use disorder severe - withdrawal - Recommended/Plan of Treatment Treatment Recommendations and Plan of Treatment: Patient education Supportive therapy CBT for relapse prevention HI for abstinence Methadone taper for opiate withdrawal symptoms Olanzapine, Seroquel for depression trazodone for sleep Neurotin metformin for diabetes as necessary medication, including Atarax Nicotine patch if patient allows - Smoking Cessation Smoking Cessation Initiated: No Reason for not providing: patient refused
[2018-05-08] MEDS ORDERED: Pneumococcal 23-Valent Vaccine IM ONE (10:00)
--- NOTE | 2018-05-08 10:03 | PCM.PYCHPN ---
Psychiatric Progress Note - Psychiatric Progress Note Patient seen today, length of contact: 16 min Patient Chief Complaint: I am hearing voices.' Problems Identified/Issues Discussed: Patient seen and evaluated, chart reviewed and discussed with the nurse. Pt reports depressed mood, and reports feelings of hopelessness and helplessness. He still reports irritability and agitation. Pt remained disorganized and internally preoccupied. he remained isolated and withdrawn, and confined to his room. Patient reports of withdrawal symptoms including abdominal cramps, anxiety, headaches and sweating. Patient is compliant with medications and denies any side effects. Symptoms are improving but pt needs more time to stabilize. Support and psychoeducation given. Medication Change: Yes Medical Record Reviewed: Yes Mental Status Examination - Cognitive Function Orientation: Person, Place, Situation, Time Memory: Intact Attention: WNL Concentration: Poor Association: Loose Fund of Knowledge: Poor - Mood Mood: Depressed, Anxious - Affect Affect: Constricted, Depressed - Formal Thought Process Formal Thought Process: Hallucinations, Delusions, Paranoia, Loosening of associations - Suicidal Ideation Suicidal Ideation: No - Homicidal Ideation Homicidal Ideation: No Goal/Treatment Plan - Goal/Treatment Plan Need for Continued Stay: Severe depression anxiety, Severe functional impairment Progress Toward Problem(s) and Goals/Treatment Plan: Schizoaffective disorder bipolar type. Opiate use disorder severe Opiate withdrawal -Patient education -Supportive therapy -CBT for relapse prevention -UT for abstinence -Methadone taper for opiate withdrawal symptoms -metformin for diabetes -as necessary medication, including Atarax -Nicotine patch if patient allows -Atarax 25 mg PO Q6 prn -Cogentin 1 mg PO BID -Seroquel 200 mg PO QHS -Trazodone 50 mg PO QHS -Neurontin 300 mg PO TID -Olanzapine 10 mf PO BID - Smoking Cessation Smoking Cessation Initiated: No
[2018-05-09] MEDS ORDERED: Benzocaine/Menthol (Cepacol) Lozenge PO PRN (01:19)
[2018-05-10] MEDS: Aluminum Hydroxide/Magnesium Hydroxide Susp (30 mL) PO PRN (11:34)
[2018-05-10] MEDS ORDERED: Albuterol HFA 90 mcg/actuation (8 g) INH PRN (18:00)
--- NOTE | 2018-05-10 21:31 | PCM.PYCHPN ---
Psychiatric Progress Note - Psychiatric Progress Note Patient seen today, length of contact: 15-minute Patient Chief Complaint: I still hear voices. Can he get more Seroquel. Problems Identified/Issues Discussed: Patient seen, chart reviewed, case discussed with the staff. Issues related to illness and treatment were discussed with the patient and staff. Reported compliant with treatment with no adverse affects. Tolerating treatment very well. Patient reported feeling little better with the treatment. Calm and cooperative. Awake, alert and oriented 3. No psychomotor activity, good eye contact, memory intact. Aftercare discussed with the patient. Denied any delusions, auditory or visual hallucinations, suicidal ideations or homicidal ideations at the time of evaluation. Diagnostic Results: Reviewed DSM 5 Symptoms Update: Some improvement with treatment. Medication Change: No Medical Record Reviewed: Yes Mental Status Examination - Cognitive Function Orientation: Person, Place, Situation, Time Memory: Intact Attention: WNL Concentration: WNL Association: WNL Fund of Knowledge: WN Decription of patient's judgement and insights: Good - Mood Mood: Depressed - Affect Affect: Constricted - Speech Speech: Appropriate - Formal Thought Process Formal Thought Process: Paranoia, Loosening of associations - Suicidal Ideation Suicidal Ideation: No - Homicidal Ideation Homicidal Ideation: No Goal/Treatment Plan - Goal/Treatment Plan Need for Continued Stay: Remain at risks for inpatient hospitalization, Discharge may exacerbated symptoms, Severe functional impairment Progress Toward Problem(s) and Goals/Treatment Plan: Patient education. Supportive therapy. Continue treatment as before. Estimated Date of D/C: 05/13/18 - Smoking Cessation Smoking Cessation Initiated: No
[2018-05-11] MEDS: Aluminum Hydroxide/Magnesium Hydroxide Susp (30 mL) PO PRN (10:08)
--- NOTE | 2018-05-11 11:11 | PCM.PYCHPN ---
Psychiatric Progress Note - Psychiatric Progress Note Patient seen today, length of contact: 16 min Patient Chief Complaint: I am hearing voices.' Problems Identified/Issues Discussed: Patient seen and evaluated, chart reviewed and discussed with the nurse. Pt reports depressed mood, and reports feelings of hopelessness and helplessness. He still reports irritability and agitation. Pt remained disorganized and internally preoccupied. he remained isolated and withdrawn, and confined to his room. Patient reports of withdrawal symptoms including abdominal cramps, anxiety, headaches and sweating. Patient is compliant with medications and denies any side effects. Symptoms are improving but pt needs more time to stabilize. Support and psychoeducation given. Medication Change: Yes Medical Record Reviewed: Yes Mental Status Examination - Cognitive Function Orientation: Person, Place, Situation, Time Memory: Intact Attention: WNL Concentration: Poor Association: Loose Fund of Knowledge: Poor - Mood Mood: Depressed, Anxious - Affect Affect: Constricted, Depressed - Formal Thought Process Formal Thought Process: Hallucinations, Delusions, Paranoia, Loosening of associations - Suicidal Ideation Suicidal Ideation: No - Homicidal Ideation Homicidal Ideation: No Goal/Treatment Plan - Goal/Treatment Plan Need for Continued Stay: Severe depression anxiety, Severe functional impairment Progress Toward Problem(s) and Goals/Treatment Plan: Schizoaffective disorder bipolar type. Opiate use disorder severe Opiate withdrawal -Patient education -Supportive therapy -CBT for relapse prevention -NM for abstinence -Methadone taper for opiate withdrawal symptoms -metformin for diabetes -as necessary medication, including Atarax -Nicotine patch if patient allows -Atarax 25 mg PO Q6 prn -Cogentin 1 mg PO BID -Seroquel 200 mg PO QHS -Trazodone 50 mg PO QHS -Neurontin 300 mg PO TID -Olanzapine 10 mf PO BID
[2018-05-12 06:51] VITALS: O2SAT 99
--- NOTE | 2018-05-12 10:16 | PCM.PYCHPN ---
Psychiatric Progress Note - Psychiatric Progress Note Patient seen today, length of contact: 16 min Patient Chief Complaint: I am hearing voices.' Problems Identified/Issues Discussed: Patient seen and evaluated, chart reviewed and discussed with the nurse. Staff reports pt is improving. He reports improvement in his mood and withdrawal symptoms. Patient is compliant with medications and denies any side effects. Symptoms are improving but need more time to stabilize. Support and psychoeducation given. Medication Change: Yes Medical Record Reviewed: Yes Mental Status Examination - Cognitive Function Orientation: Person, Place, Situation, Time Memory: Intact Attention: WNL Concentration: Poor Association: Loose Fund of Knowledge: Poor - Mood Mood: Depressed, Anxious - Affect Affect: Constricted, Depressed - Formal Thought Process Formal Thought Process: Hallucinations, Delusions, Paranoia, Loosening of associations - Suicidal Ideation Suicidal Ideation: No - Homicidal Ideation Homicidal Ideation: No Goal/Treatment Plan - Goal/Treatment Plan Need for Continued Stay: Severe depression anxiety, Severe functional impairment Progress Toward Problem(s) and Goals/Treatment Plan: Schizoaffective disorder bipolar type. Opiate use disorder severe Opiate withdrawal -Patient education -Supportive therapy -CBT for relapse prevention -ME for abstinence -Methadone taper for opiate withdrawal symptoms -metformin for diabetes -as necessary medication, including Atarax -Nicotine patch if patient allows -Atarax 25 mg PO Q6 prn -Cogentin 1 mg PO BID -Seroquel 200 mg PO QHS -Trazodone 50 mg PO QHS -Neurontin 300 mg PO TID -Olanzapine 10 mf PO BID
[2018-05-13 06:36] VITALS: BP 101/62; PULSE 79; RESP 18; TEMP 98.4
--- NOTE | 2018-05-13 10:50 | PCM.PYCHDC ---
Mental Status Examination - Mental Status Examination Orientation: Person, Place, Situation, Time Memory: Intact Mood: Neutral Affect: Constricted Speech: Soft Attention: WNL Concentration: WNL Association: WNL Fund of Knowledge: WNL Formal Thought Process: No Impairment Description of patient's judgement and insight: good, fair Psychotic Thoughts and Behaviors: denies any AVH Suicidal Ideation: No Current Homicidal Ideation?: No Discharge Summary - Discharge Note Reason for Hospitalization: Patient is a 53 year old single AAM, who was brought in by his cousin for complaints of command auditory hallucinations telling him to kill himself. Patient has a long history of schizophrenia. He has history of multiple [facility]. He was last discharged from [facility] [place] last month. As per him he stopped taking his meds and relapsed on heroin. He has been abusing almost 7 bags daily, last abuse immediately prior to admission. As per the patient he started hearing voices to hurt himself and started seeing shadows and became increasingly paranoid and delusional. His cousin brought him to the hospital for further evaluation after taking a knife away from him. He appeared very disorganized and internally preoccupied. He reports auditory and visual hallucinations and persecutory delusions. Patient was observed walking around, nodding out and not cooperating with anyone. He appears delusional and paranoid. He reports of withdrawal symptoms including joint pains, sweating, headache, sweating and nausea. He has history of OD attempt in 2016. He reports irritability and agitation. He also reports depressed mood and feelings of hopelessness. Laboratory Data: Abnormal Lab Results 05/13/18 07:27 POC Glucose (mg/dL) 168 H Consultations:: List each consultation separately and include: 1. Reason for request. 2. Findings. 3. Follow-up Summary of Hospital Course include:: 1. Description of specific treatment plan utilized for patients during their course of treatmen. 2. Summarize the time- course for resolution of acute symptoms and/or regressed behaviors. 3. Describe issues identified and worked on during hospitalization. 4. Describe medication utilized. 5. Describe medical problems identified and treated. 6. Reassessment of suicide risk Summary of Hospital Course: During the course of his stay, patient (pt) started progressively improving and no longer remained irritable, paranoid, depressed, and suicidal. His mood and anxiety were improved and he started attending groups and meetings and started socializing. Patient denied any feelings of hopelessness, helplessness, and worthlessness, denied any problem with the sleep or appetite, denied suicidal ideation or homicidal ideation. Pt denied any auditory or visual hallucinations. He denied any withdrawal symptoms. Pt was treated with medications along with supportive therapy, milieu therapy and group therapy. Some changes were made in his current medications and patient was discharged on following medications. He tolerated these medications very well and denied any side effects. - Diagnosis (1) Schizophrenia Status: Acute (2) Opioid use disorder, severe, dependence Status: Acute - Final Diagnosis (DSM 5) Condition upon Discharge: STABLE DSM 5: Schizoaffective disorder bipolar type. Opiate use disorder severe - withdrawal Disposition: HOME/ ROUTINE Follow-up Treatment Plan: Followup: He was discharged to the [facility] Education: Pt was educated and counseled about the risks and benefits of taking and not taking medications. Pt was educated and counseled about the risks of drinking and abusing drugs. Pt was educated and counseled to go to the ER or call 911 if pt develop suicidal ideation or homicidal ideation, worsening of symptoms or severe side effects of the meds. Prescriptions/Medication Reconciliation: Gabapentin [Neurontin] 300 mg PO TID #90 cap metFORMIN [glucOPHAGE] 1,000 mg PO BID #60 tab OLANZapine [Zyprexa] 10 mg PO BID #60 tab QUEtiapine [SEROquel] 200 mg PO HS #30 tab - Smoking Cessation Smoking Cessation Medication prescribed: No - Antipsychotic Medications Pt discharged on 2 or more routine antipsychotic medications: No
== END 2018-05-13 11:13 | disposition home or self-care (01) | DRG 750 ==
LOC: C.ER 17:13 → C.9E 20:32 → C.5E 20:45
PROVIDERS: ADMIT Psychiatry & Neurology Psychiatry; ATTEND Psychiatry & Neurology Psychiatry
PROC: GZHZZZZ Group Psychotherapy (ICD-10-PCS; principal; 2018-05-06)
PROC: GZ56ZZZ Individual Psychotherapy, Supportive (ICD-10-PCS; 2018-05-06)
DX: F25.0 Schizoaffective disorder, bipolar type (principal); E11.9 Type 2 diabetes mellitus without complications; I10 Essential (primary) hypertension; F11.23 Opioid dependence with withdrawal; E78.00 Pure hypercholesterolemia, unspecified; F19.10 Other psychoactive substance abuse, uncomplicated

== ENCOUNTER 2018-07-15 14:36 | Inpatient (IN) | payer MEDICAID, OTHER ==
[2018-07-15 14:36] VITALS: BMI 27.6
[2018-07-15 15:30] LABS: BASO % 0.9 % (0.0-2.0); EOS # 0.1 K/uL (0.0-0.7); EOS % 1.8 % (0.0-4.0); LYMPH # 1.8 K/uL (1.0-4.3); LYMPH % 35.9 % (20.0-40.0); MEAN CELL VOLUME 90.4 fL (80.0-94.0); MEAN CORPUSCULAR HEMOGLOBIN 29.8 pg (27.0-31.0); MEAN CORPUSCULAR HGB CONC 32.9 g/dL (33.0-37.0); MEAN PLATELET VOLUME 6.7 fL (7.2-11.7); MONO # 0.5 K/uL (0.0-0.8); MONO % 10.2 % (0.0-10.0); NEUT # 2.5 K/uL (1.8-7.0); NEUT % 51.2 % (50.0-75.0); NRBC % 0.1 % (0.0-2.0); RBC 4.7 Mil/uL (4.40-5.90); RED CELL DISTRIBUTION WIDTH 13.6 % (11.5-14.5); WHITE BLOOD COUNT 4.9 K/uL (4.8-10.8)
[2018-07-15 15:40] LABS: SQUAMOUS EPITHIAL < 1 /hpf (0-5); URINE BILIRUBIN NEGATIVE (NEGATIVE); URINE BLOOD NEGATIVE (NEGATIVE); URINE CLARITY Clear (Clear); URINE COLOR Amber (YELLOW); URINE GLUCOSE (UA) NORMAL (Normal); URINE LEUKOCYTE ESTERASE NEG Leu/uL (Negative); URINE PROTEIN 1+ mg/dL (NEGATIVE)
[2018-07-15 15:42] LABS: ALB/GLOB RATIO 1.2 (1.0-2.1); ALBUMIN 4.6 g/dL (3.5-5.0); ALT/SGPT 33 U/L (21-72); BLOOD UREA NITROGEN 11 mg/dL (9-20); CALCIUM 9.5 mg/dl (8.6-10.4); GFR NON-AFRICAN AMERICAN > 60
[2018-07-15 15:45] LABS: BARBITURATES, UR NEGATIVE (NEGATIVE); PHENCYCLIDINE, UR NEGATIVE (NEGATIVE)
[2018-07-15 15:47] LABS: BENZODIAZEPINES, UR POSITIVE (NEGATIVE); OPIATES, UR POSITIVE (NEGATIVE)
[2018-07-15 15:53] LABS: AST/SGOT 42 U/L (17-59)
--- NOTE | 2018-07-15 16:22 | C.PDOC ---
History Of Present Illness 53 y/o male with a PMHx of bipolar disorder, schizophrenia, and depression, presents to the ED for suicidal ideation. Patient reports he is compliant with all meds. States he is feeling suicidal and hearing voices telling him to hurt himself and family. Decided to leave and seek help. No physical complaints offered at this time. He admits to smoking and intra-nasal heroin use. Denies alcohol use. Time Seen by Provider: 07/15/18 14:45 Chief Complaint (Nursing): Psychiatric Evaluation History Per: Patient History/Exam Limitations: no limitations Onset/Duration Of Symptoms: Days Current Symptoms Are (Timing): Still Present Suicide/Self Injury Attempted (Context): None Modifying Factor(s): Other (Heroin) Associated Symptoms: Depression, Suicidal Thoughts, Suicidal Plan Involuntary Hold By: None Past Medical History Reviewed: Historical Data, Nursing Documentation, Vital Signs Vital Signs: Last Vital Signs Temp 97.6 F 07/15/18 15:05 Pulse 99 H 07/15/18 15:05 Resp 18 07/15/18 15:05 BP 122/77 07/15/18 15:05 Pulse Ox 99 07/15/18 15:05 - Medical History PMH: Anxiety, Bipolar Disorder, Diabetes, HTN, Hypercholesterolemia, Schizophrenia (paranoid schizophrenia) Denies: Chronic Kidney Disease Comment Only: Hepatitis (Patient denied), HIV (Patient denied), Seizures (Patient denied), Sexually Transmitted Disease (Patient denied) - [facility] Procedures DETOXIFICATION SERVICES FOR SUBSTANCE ABUSE TREATMENT (01/27/18) GROUP LEAD PYTHON DEVELOPER FOR SUBSTANCE ABUSE TREATMENT, PSYCHOEDUCATION (01/27/18) GROUP LEAD PYTHON DEVELOPER FOR SUBSTANCE ABUSE, COGNITIVE BEHAVIORAL (01/27/18) GROUP PSYCHOTHERAPY (05/06/18) INDIV PSYCHOTHERAPY FOR SUBSTANCE ABUSE TREATMENT, SUPPORT (01/27/18) INDIV PSYCHOTHERAPY FOR SUBSTANCE ABUSE, COGNITIV BEHAVIORAL (03/23/18) INDIV PSYCHOTHERAPY FOR SUBSTANCE ABUSE, PSYCHOEDUCATION (01/27/18) INDIVIDUAL PSYCHOTHERAPY, COGNITIVE-BEHAVIORAL (03/23/18) INDIVIDUAL PSYCHOTHERAPY, SUPPORTIVE (05/06/18) MEDS MGMT FOR SUBSTANCE ABUSE TREATMENT, METHADONE MAINT (02/21/17) Family History: States: Unknown Family Hx - Social History Hx Alcohol Use: No Hx Substance Use: Yes - Immunization History Hx Tetanus Toxoid Vaccination: Yes Hx Influenza Vaccination: (unk) Hx Pneumococcal Vaccination: Yes Review Of Systems Except As Marked, All Systems Reviewed And Found Negative. Constitutional: Negative for: Fever Cardiovascular: Negative for: Chest Pain Respiratory: Negative for: Shortness of Breath Gastrointestinal: Negative for: Vomiting, Abdominal Pain Psych: Positive for: Suicidal ideation (with plan to cut throat and take pills), Other (Hearing voices telling him to hurt self and others) Physical Exam - Physical Exam Appears: Non-toxic, No Acute Distress Skin: Normal Color, Warm, Dry Head: Atraumatic, Normacephalic Eye(s): bilateral: Normal Inspection, PERRL, EOMI Oral Mucosa: Moist Neck: Normal ROM Chest: Symmetrical Cardiovascular: Rhythm Regular, No Murmur Respiratory: Normal Breath Sounds, No Rales, No Rhonchi, No Wheezing Gastrointestinal/Abdominal: Soft, No Tenderness, No Distention Extremity: Bilateral: Atraumatic, Normal Color And Temperature Neurological/Psych: Oriented x3, Other (Flat affect) ED Course And Treatment - Laboratory Results Result Diagrams: 07/15/18 15:24 07/15/18 15:24 ECG: Interpreted By Me, Viewed By Me ECG Rhythm: Sinus Rhythm Rate From EC (bpm) O2 Sat by Pulse Oximetry: 99 (RA) Pulse Ox Interpretation: Normal - Other Rad CXR X-Ray: Read By Radiologist Interpretation: Accession No. : [id number]. Patient Name / ID : MEL RODRIGUEZ / [id number]. Exam Date : 07/15/2018 15:14:46 ( Approved ). Study Comment : Sex / Age : M / 53Y. Creator : Neelam English MD. Dictator : Neelam English MD. District Associate Judge : Extension Associate : Neelam English MD. Approver2 : Report Date : 07/15/2018 16:44:36. My Comment : . HISTORY: Detox/Psy. COMPARISON: Chest x-ray performed 03/23/18. TECHNIQUE: Chest, one view. FINDINGS: Examination limited by habitus and hypoinflation. LUNGS: Right hilar prominence. Mild venous congestion versus vascular crowding due to hypoinflation. No focal c onsolidation. Please note that chest x-ray has limited sensitivity for the detection of pulmonary masses. PLEURA: No significant pleural effusion identified. No definite pneumothorax . CARDIOVASCULAR: Heart size appears top normal. No significant atherosclerotic calcification present. OSSEOUS STRUCTURES: No acute osseous abnormality identified. VISUALIZED UPPER ABDOMEN: Unremarkable. OTHER FINDINGS: None. IMPRESSION: Right hilar prominence. Mild venous congestion versus vascular crowding due to hypoinflation. Medical Decision Making Medical Decision Making: Impression: Suicidal Ideation Plan: Labs, EKG, and CXR ordered for medical clearance. Patient given 0.5 mg Xanax PO. Placed on 1:1 obs, awaiting crisis evaluation. Labs reviewed, Utox + for opiates. Patient is medically cleared for psychiatric evaluation. 16:44 Spoke with crisis, patient is to be admitted for schizophrenia under Dr. Vides. Disposition Discussed With : Betty Vides Doctor Will See Patient In The: Hospital Counseled Patient/Family Regarding: Studies Performed - Disposition Disposition: HOSPITALIZED Disposition Time: 15:30 Condition: STABLE - POA Present On Arrival: None - Clinical Impression Clinical Impression: Paranoid schizophrenia - Scribe Statement The provider has reviewed the documentation as recorded by the Emma Miller Provider Attestation: All medical record entries made by the Emma were at my direction and perso naila dictated by me. I have reviewed the chart and agree that the record accurately reflects my personal performance of the history, physical exam, medical decision making, and the department course for this patient. I have also personally directed, reviewed, and agree with the discharge instructions and disposition.
--- NOTE | 2018-07-15 16:48 | RAD ---
HISTORY: Detox/Psy COMPARISON: Chest x-ray performed 03/23/18 TECHNIQUE: Chest, one view. FINDINGS: Examination limited by habitus and hypoinflation. LUNGS: Right hilar prominence. Mild venous congestion versus vascular crowding due to hypoinflation. No focal consolidation. Please note that chest x-ray has limited sensitivity for the detection of pulmonary masses. PLEURA: No significant pleural effusion identified. No definite pneumothorax . CARDIOVASCULAR: Heart size appears top normal. No significant atherosclerotic calcification present. OSSEOUS STRUCTURES: No acute osseous abnormality identified. VISUALIZED UPPER ABDOMEN: Unremarkable. OTHER FINDINGS: None. IMPRESSION: Right hilar prominence. Mild venous congestion versus vascular crowding due to hypoinflation.
[2018-07-15 18:34] VITALS: O2SAT 99
[2018-07-15] MEDS ORDERED: Albuterol HFA 90 mcg/actuation (8 g) INH PRN (20:00)
--- NOTE | 2018-07-15 21:50 | PCM.BM ---
<ShiraFortunato - Last Filed: 07/15/18 21:46> Treatment Plan Problems - Problems identified on initial assessmt Depression Date Initiated: 07/15/18 Time Initiated: 17:30 Assessment reference: NA Status: Active Auditory Hallucinations Date Initiated: 07/15/18 Time Initiated: 17:30 Assessment reference: NA Status: Active Treatment assets and liabiliti Patient Assests: adapts well, good support system, negotiates basic needs, cognitively intact, cooperative, resourceful, self-reliant, ADL independent, physically healthy Patient Liabilities: substance abuse (Heroin), medical problems (Diabetes, HTN, Asthma) - Milieu Protocol Maintain good personal hygiene: daily Encourage regular showers, daily Remind patient to perform daily oral care, every shift Assist patient to perform ADL's Conduct patient checks and document Observation sheet: Q15 minutes Maintain personal safety: every shift Educate patient to report safety concerns to staff, every shift Monitor environment for contraband/sharps Medication safety: Monitor for expected outcome, potential side effects: every shift, Assess barriers to learning: every shift, Assess readiness for medication education: every shift <Viki Vuong - Last Filed: 07/17/18 10:50> Family Contact Family involvement: Family/SO is involved Family contact: Patient declines to allow family contact at present - Goals for Treatment Patient goals for treatment: "I want to go to another day program." Discharge/Continuing Care - Education Needs Education Needs: Patient Medication, Patient Coping Skills - Discharge Discharge Criteria: Tolerates medication w/o severe side effects, No longer exhibiting s/s of withdrawal, Reduction of target symptoms Discharge to:: Home, With Family - Treatment Team Participation Discussed with Family/SO: No Was Patient/Family/SO present at Treatment Team Meeting: Yes
--- NOTE | 2018-07-16 10:57 | PCM.PSYCH ---
Initial Psychiatric Evaluation - Initial Psychiatric Evaluation Type of Admission: Voluntary Legal Status: Capacity Chief Complaint (in patient's own words): I was hearing voices telling me to harm myself and others.' History of Present Illness and Precipitating Events: This is a 53 years old male, who is currently single and unemployed, escorted to the ED by the ambulance because of disorganized behavior, auditory hallucinations command type telling him to harm himself and others. Well Logging Captain is familiar with this patient. Patient has a history of multiple inpatient psychiatric admissions because of disorganized behavior, noncompliance with medications and heroin abuse. He was just recently discharged from [facility], most 3 months ago. Patient reports that he has been partially compliant with medications and started abusing heroine 7-8 bags daily. He reports that he started hearing voices for a couple of weeks. However he reports that yesterday he developed suicidal ideation with a plan to grab a gun and shoot himself. He appeared somewhat disorganized and internally preoccupied throughout the interview. He appeared paranoid and delusional. He reports that the voices in his head sound like a shot core drill operator when they speak to him. He reports that he is in extreme pain because the voices wouldnt stop. He reports depressed mood, feelings of hopelessness and helplessness, poor sleep and poor appetite. He reports withdrawal symptoms from heroin including anxiety, vomiting, sweating, restlessness, yawning, muscle aches, irritability, diarrhea and abdominal pains. Patient reports that he has history of multiple incarcerations for up to 15 years due to aggressive and agitated behavior towards others Past medical history: DM and asthma Family history: Mother from lung cancer and that his father had diabetes. Mother was also addicted to heroin Current Medications: Active Medications Generic Name Dose Route Start Last Admin Trade Name Freq PRN Reason Stop Dose Admin Acetaminophen 650 mg 07/15/18 18:27 07/15/18 19:00 Tylenol 325mg Tab PO 650 mg Q6 PRN Administration Pain, moderate (4-7) Albuterol 1 puff 07/15/18 20:00 Ventolin Hfa 90 Mcg/Actuation (8 G) INH RQ6 PRN Shortness of Breath Clonidine HCl 0.1 mg 07/15/18 20:00 Catapres PO Q8H PRN WITHDRAWAL SYMPTOMS Metformin HCl 1,000 mg 07/15/18 19:00 12/06/18 09:12 Glucophage PO 1,000 mg BID VALERIA Administration Pneumococcal Polyvalent Vaccine 0.5 ml 07/18/18 10:00 Pneumovax 23 Vaccine IM 07/18/18 10:01 .ONCE ONE Quetiapine Fumarate 200 mg 07/15/18 22:00 07/15/18 22:27 Seroquel PO 200 mg HS VALERIA Administration Past Psychiatric History - Past Psychiatric History Previous Treatment History: Inpatient Pertinent Medical Hx (Current Medical&Sleep Prob, Allergies): Allergies Allergy/AdvReac Type Severity Reaction Status Date / Time No Known Allergies Allergy Verified 06/02/18 14:40 QUEtiapine [SEROquel] 50 mg PO BID 30 Days #60 tab 03/26/18 QUEtiapine [SEROquel] 200 mg PO HS 30 Days #30 tab 03/26/18 Gabapentin [Neurontin] 300 mg PO BID #60 cap 03/27/18 Invega IM Q30D 05/06/18 MetFORMIN [glucoPHAGE] 1,000 mg PO BID 05/06/18 Gabapentin [Neurontin] 300 mg PO TID #90 cap 05/13/18 OLANZapine [Zyprexa] 10 mg PO BID #60 tab 05/13/18 QUEtiapine [SEROquel] 200 mg PO HS #30 tab 05/13/18 metFORMIN [glucOPHAGE] 1,000 mg PO BID #60 tab 05/13/18 No Known Home Med 06/02/18 Review of Systems - Review of Systems All systems: reviewed and no additional remarkable complaints except - Psychiatric Psychiatric: Anxiety, Auditory Hallucinations, Depression, Hopelessness, Mood Swings, Suicidal Ideation Mental Status Examination - Personal Presentation Personal Presentation: Looks stated age - Affect Affect: Constricted, Depressed - Motor Activity Motor Activity: Calm - Reliability in Providing Information Reliability in Providing Information: Poor, due to alteration in thoughts, Poor, due to altered mood - Speech Speech: Disorganized - Mood Mood: Depressed, Anxious - Formal Thought Process Formal Thought Process: Hallucinations, Delusions, Paranoia, Loosening of associations - Obsessions/Compulsions Obsessions: No Compulsions: No - Cognitive Functions Orientation: Person, Place, Situation, Time Sensorium: Alert Attention/Concentration: Attentive Abstract Thinking: Allison Estimate of Intelligence: Below average Judgement: Imparied, as evidence by: Poor judgement, Imparied, as evidence by: Lack of insight into illness - Risk Risk: Suicidal, Withdrawal, Diminished functioning - Limitations Limitations: Living alone DSM 5 DX - DSM 5 DSM 5 Diagnosis: Schizoaffective disorder bipolar type Opioid use disorder severe Opioid withdrawal Cocaine use disorder moderate - Recommended/Plan of Treatment Treatment Recommendations and Plan of Treatment: Schizoaffective disorder bipolar type Opioid use disorder severe Opioid withdrawal Cocaine use disorder moderate CBT Psychoeducation Supportive therapy Trileptal 150 mg p.o. twice daily Olanzapine 5 mg p.o. twice daily Seroquel 50 mg p.o. twice daily Seroquel 200 mg p.o. nightly Neurontin 300 mg p.o. 3 times daily Hydroxyzine 50 mg p.o. every 6 hours as needed Methadone taper As needed medications
--- NOTE | 2018-07-16 22:12 | CARD ---
APPROVED REPORT Date of service: 07/15/2018 EKG Measurement Heart [id number] <Conclusion> Normal sinus rhythm Possible Left atrial enlargement Left axis deviation Septal infarct, age undetermined Abnormal ECG
--- NOTE | 2018-07-17 10:32 | PCM.PYCHPN ---
Psychiatric Progress Note - Psychiatric Progress Note Patient seen today, length of contact: 15 min Patient Chief Complaint: I was hearing voices telling me to harm myself and others.' Medication Change: Yes Medical Record Reviewed: Yes Mental Status Examination - Cognitive Function Orientation: Person, Place, Situation, Time Memory: Intact Attention: Poor Concentration: Poor Association: Loose Fund of Knowledge: Poor - Mood Mood: Depressed, Anxious - Affect Affect: Constricted, Depressed - Formal Thought Process Formal Thought Process: Hallucinations, Delusions, Paranoia, Loosening of associations - Suicidal Ideation Suicidal Ideation: No - Homicidal Ideation Homicidal Ideation: No Goal/Treatment Plan - Goal/Treatment Plan Need for Continued Stay: Remain at risks for inpatient hospitalization, Severe functional impairment Progress Toward Problem(s) and Goals/Treatment Plan: Schizoaffective disorder bipolar type Opioid use disorder severe Opioid withdrawal Cocaine use disorder moderate CBT Psychoeducation Supportive therapy Trileptal 150 mg p.o. twice daily Olanzapine 5 mg p.o. twice daily Seroquel 50 mg p.o. twice daily Seroquel 200 mg p.o. nightly Neurontin 300 mg p.o. 3 times daily Hydroxyzine 50 mg p.o. every 6 hours as needed Methadone taper As needed medications - Smoking Cessation Smoking Cessation Initiated: No
[2018-07-18 06:52] VITALS: RESP 18
[2018-07-18] MEDS ORDERED: Pneumococcal 23-Valent Vaccine IM ONE (10:00)
--- NOTE | 2018-07-18 13:07 | PCM.PYCHPN ---
Psychiatric Progress Note - Psychiatric Progress Note Patient seen today, length of contact: 15 min Patient Chief Complaint: I am feeling better. Can I get more Seroquel. Problems Identified/Issues Discussed: Patient seen, chart reviewed, case discussed with the staff. Issues related to illness and treatment were discussed with the patient and staff. Reported compliant with treatment with no adverse effects. Tolerating treatment very well. Patient reported feeling better. Patient also requesting for more Seroquel at night. Education provided about the medication. Awake, alert and oriented 3. Calm and more cooperative. Mood reported as okay. Affect inappropriate appeared Flat. Treatment discussed with the patient. Needs more time for stabilization. Aftercare discussed with the patient. Denied any delusions, auditory or visual hallucinations, suicidal ideations or homicidal ideations at the time of evaluation. Medical Problems: Diabetes mellitus. Asthma Diagnostic Results: Reviewed DSM 5 Symptoms Update: Some improvement with treatment. Medication Change: No Medical Record Reviewed: Yes Mental Status Examination - Cognitive Function Orientation: Person, Place, Situation, Time Memory: Intact Attention: WNL Concentration: WNL Association: WNL Fund of Knowledge: WNL Decription of patient's judgement and insights: Fair - Mood Mood: Anxious - Affect Affect: Flat - Speech Speech: Soft - Formal Thought Process Formal Thought Process: Loosening of associations, Flight of ideas - Suicidal Ideation Suicidal Ideation: No - Homicidal Ideation Homicidal Ideation: No Goal/Treatment Plan - Goal/Treatment Plan Need for Continued Stay: Remain at risks for inpatient hospitalization, Discharge may exacerbated symptoms, Severe functional impairment Progress Toward Problem(s) and Goals/Treatment Plan: Patient education. Supportive therapy. Continue treatment as before. Patient will go to [facility] for follow-up care after discharge from the hospital. Estimated Date of D/C: 07/20/18 - Smoking Cessation Smoking Cessation Initiated: No
[2018-07-18] MEDS ORDERED: Vitamin A/D oint 60G TP PRN (20:46)
[2018-07-19] MEDS ORDERED: Vitamins A & D Oint UD Foilpak TOP PRN (17:40)
--- NOTE | 2018-07-19 23:23 | PCM.PYCHPN ---
Psychiatric Progress Note - Psychiatric Progress Note Patient seen today, length of contact: 15 min Patient Chief Complaint: I am feeling better. Can I get more Seroquel. Problems Identified/Issues Discussed: Patient seen, chart reviewed, case discussed with the staff. Issues related to illness and treatment were discussed with the patient and staff. Reported compliant with treatment with no adverse effects. Tolerating treatment very well. Patient reported feeling better. Patient also requesting for more Seroquel at night. Education provided about the medication. Awake, alert and oriented 3. Calm and more cooperative. Mood reported as okay. Affect inappropriate appeared Flat. Treatment discussed with the patient. Needs more time for stabilization. Aftercare discussed with the patient. Denied any delusions, auditory or visual hallucinations, suicidal ideations or homicidal ideations at the time of evaluation. Medical Problems: Diabetes mellitus. Asthma Diagnostic Results: Reviewed Medication Change: No Medical Record Reviewed: Yes Mental Status Examination - Cognitive Function Orientation: Person, Place, Situation, Time Memory: Intact Attention: WNL Concentration: WNL Association: WNL Fund of Knowledge: WN Decription of patient's judgement and insights: Fair - Mood Mood: Anxious - Affect Affect: Flat - Speech Speech: Soft - Formal Thought Process Formal Thought Process: Loosening of associations, Flight of ideas - Suicidal Ideation Suicidal Ideation: No - Homicidal Ideation Homicidal Ideation: No Goal/Treatment Plan - Goal/Treatment Plan Need for Continued Stay: Remain at risks for inpatient hospitalization, Discharge may exacerbated symptoms, Severe functional impairment Progress Toward Problem(s) and Goals/Treatment Plan: Patient education. Supportive therapy. Continue treatment as before. Patient will go to [facility] for follow-up care after discharge from the hospital. Estimated Date of D/C: 07/20/18
[2018-07-20 06:33] VITALS: BP 113/77; PULSE 72; TEMP 97.6
--- NOTE | 2018-07-20 11:01 | PCM.PYCHDC ---
Mental Status Examination - Mental Status Examination Orientation: Person, Place, Situation, Time Memory: Intact Mood: Neutral Affect: Constricted Speech: Soft Attention: WNL Concentration: WNL Association: WNL Fund of Knowledge: WNL Formal Thought Process: No Impairment Description of patient's judgement and insight: GOOD, FAIR Psychotic Thoughts and Behaviors: Denies anY AVH Suicidal Ideation: No Current Homicidal Ideation?: No Discharge Summary - Discharge Note Laboratory Data: Abnormal Lab Results 07/19/18 07/20/18 16:05 07:23 POC Glucose (mg/dL) 78 99 Consultations:: List each consultation separately and include: 1. Reason for request. 2. Findings. 3. Follow-up Summary of Hospital Course include:: 1. Description of specific treatment plan utilized for patients during their course of treatmen. 2. Summarize the time- course for resolution of acute symptoms and/or regressed behaviors. 3. Describe issues identified and worked on during hospitalization. 4. Describe medication utilized. 5. Describe medical problems identified and treated. 6. Reassessment of suicide risk Summary of Hospital Course: This is a 53 years old male, who is currently single and unemployed, escorted to the ED by the ambulance because of disorganized behavior, auditory hallucinations command type telling him to harm himself and others. Associate Financial Planner is familiar with this patient. Patient has a history of multiple inpatient psychiatric admissions because of disorganized behavior, noncompliance with medications and heroin abuse. He was just recently discharged from [facility], most 3 months ago. Patient reports that he has been partially compliant with medications and started abusing heroine 7-8 bags daily. He reports that he started hearing voices for a couple of weeks. However he reports that yesterday he developed suicidal ideation with a plan to grab a gun and shoot himself. He appeared somewhat disorganized and internally preoccupied throughout the interview. He appeared paranoid and delusional. He reports that the voices in his head sound like a sample driller when they speak to him. He reports that he is in extreme pain because the voices wouldnt stop. He reports depressed mood, feelings of hopelessness and helplessness, poor sleep and poor appetite. He reports withdrawal symptoms from heroin including anxiety, vomiting, sweating, restlessness, yawning, muscle aches, irritability, diarrhea and abdominal pains. Patient reports that he has history of multiple incarcerations for up to 15 years due to aggressive and agitated behavior towards others Past medical history: DM and asthma Family history: Mother from lung cancer and that his father had diabetes. Mother was also addicted to heroin - Final Diagnosis (DSM 5) Condition upon Discharge: STABLE Disposition: HOME/ ROUTINE Follow-up Treatment Plan: Schizoaffective disorder bipolar type Opioid use disorder severe Opioid withdrawal Cocaine use disorder moderate CBT Psychoeducation Supportive therapy Trileptal 150 mg p.o. twice daily Olanzapine 5 mg p.o. twice daily Seroquel 50 mg p.o. twice daily Seroquel 200 mg p.o. nightly Neurontin 300 mg p.o. 3 times daily Hydroxyzine 50 mg p.o. every 6 hours as needed Methadone taper As needed medications Prescriptions/Medication Reconciliation: Gabapentin [Neurontin] 300 mg PO BID #60 cap Olanzapine [Zyprexa] 5 mg PO BID 30 Days #60 tablet OXcarbazepine [Trileptal] 150 mg PO BID #60 tab Paliperidone Palmitate [Invega Sustenna] 234 mg IM ONCE #1 syr QUEtiapine [SEROquel] 200 mg PO HS #30 tab QUEtiapine [SEROquel] 50 mg PO BID 30 Days #60 tab
[2018-07-20] MEDS ORDERED: Paliperidone Palmitate 234 MG/1.5 ML SYR IM ONE (11:30)
== END 2018-07-20 12:10 | disposition home or self-care (01) | DRG 430 ==
LOC: C.ER 14:36 → C.5E 16:44
PROVIDERS: ADMIT Psychiatry & Neurology Psychiatry; ATTEND Psychiatry & Neurology Psychiatry
PROC: GZ3ZZZZ Medication Management (ICD-10-PCS; principal; 2018-07-15)
PROC: HZ2ZZZZ Detoxification Services for Substance Abuse Treatment (ICD-10-PCS; 2018-07-15)
PROC: GZHZZZZ Group Psychotherapy (ICD-10-PCS; 2018-07-15)
PROC: GZ56ZZZ Individual Psychotherapy, Supportive (ICD-10-PCS; 2018-07-15)
DX: F25.0 Schizoaffective disorder, bipolar type (principal); F11.23 Opioid dependence with withdrawal; F14.20 Cocaine dependence, uncomplicated; R45.851 Suicidal ideations; E11.9 Type 2 diabetes mellitus without complications; I10 Essential (primary) hypertension; J45.909 Unspecified asthma, uncomplicated; E78.00 Pure hypercholesterolemia, unspecified; Z91.14 Patient's other noncompliance with medication regimen; Z80.1 Family history of malignant neoplasm of trachea, bronchus and lung; Z83.3 Family history of diabetes mellitus

== ENCOUNTER 2019-01-06 10:03 | Emergency (ER) | payer OTHER ==
[2019-01-06 10:03] VITALS: BMI 27.6
--- NOTE | 2019-01-06 10:44 | C.PDOC ---
History Of Present Illness Patient is a 53 year old male, with a PMHx of substance abuse, who presents to the ED c/o high blood sugar with decreased appetite. Patient reports that he has been on Metformin for the past month. PMD Dr. Meng. Chief Complaint (Nursing): High Blood Sugar History Per: Patient History/Exam Limitations: no limitations Severity: Mild Recent travel outside of the [place]: No Additional History Per: Patient Past Medical History Reviewed: Historical Data, Nursing Documentation, Vital Signs Vital Signs: Last Vital Signs Temp 98.9 F 01/06/19 10:09 Pulse 93 H 01/06/19 10:09 Resp 18 01/06/19 10:09 BP 124/85 01/06/19 10:09 Pulse Ox 98 01/06/19 10:09 Primary Care Provider: Adonis Meng - Medical History PMH: Anxiety, Bipolar Disorder, Diabetes, HTN, Hypercholesterolemia, Schizophrenia (paranoid schizophrenia) Denies: Chronic Kidney Disease Comment Only: Hepatitis (Patient denied), HIV (Patient denied), Seizures (Patient denied), Sexually Transmitted Disease (Patient denied) Surgical History: No Surg Hx - [facility] DETOXIFICATION SERVICES FOR SUBSTANCE ABUSE TREATMENT (07/15/18) GROUP BAG CUTTER FOR SUBSTANCE ABUSE TREATMENT, PSYCHOEDUCATION (01/27/18) GROUP BAG CUTTER FOR SUBSTANCE ABUSE, COGNITIVE BEHAVIORAL (01/27/18) GROUP PSYCHOTHERAPY (07/15/18) INDIV PSYCHOTHERAPY FOR SUBSTANCE ABUSE TREATMENT, SUPPORT (01/27/18) INDIV PSYCHOTHERAPY FOR SUBSTANCE ABUSE, COGNITIV BEHAVIORAL (03/23/18) INDIV PSYCHOTHERAPY FOR SUBSTANCE ABUSE, PSYCHOEDUCATION (01/27/18) INDIVIDUAL PSYCHOTHERAPY, COGNITIVE-BEHAVIORAL (03/23/18) INDIVIDUAL PSYCHOTHERAPY, SUPPORTIVE (07/15/18) MEDICATION MANAGEMENT (07/15/18) MEDS MGMT FOR SUBSTANCE ABUSE TREATMENT, METHADONE MAINT (02/21/17) Family History: States: Unknown Family Hx - Social History Hx Alcohol Use: No Hx Substance Use: Yes - Immunization History Hx Tetanus Toxoid Vaccination: Yes Hx Influenza Vaccination: (unk) Hx Pneumococcal Vaccination: Yes Review Of Systems Constitutional: Negative for: Fever, Chills Gastrointestinal: Positive for: Other (decreased appetite) Physical Exam - Physical Exam Appears: Non-toxic, No Acute Distress Skin: Warm, Dry Head: Atraumatic, Normacephalic Eye(s): bilateral: Normal Inspection Oral Mucosa: Moist Neck: Normal ROM, Supple Chest: Symmetrical, No Deformity Cardiovascular: Rhythm Regular, No Murmur Respiratory: Normal Breath Sounds, No Rales, No Rhonchi, No Wheezing Gastrointestinal/Abdominal: Soft, No Tenderness Extremity: Normal ROM Neurological/Psych: Oriented x3, Normal Speech, Normal Cognition Gait: Steady ED Course And Treatment - Laboratory Results Result Diagrams: 01/06/19 11:12 01/06/19 11:12 Lab Interpretation: Normal O2 Sat by Pulse Oximetry: 98 (on RA) Pulse Ox Interpretation: Normal - Other Rad CXR X-Ray: Viewed By Me, Read By Radiologist Interpretation: Date of service: 01/06/2019. HISTORY: SOB. COMPARISON: 07/15/2018. TECHNIQUE: Chest PA and lateral views. FINDINGS: LUNGS: No active pulmonary disease. PLEURA: No significant pleural effusion identified. No pneumothorax apparent. CARDIOVASCULAR: No aortic atherosclerotic calcification present. Normal cardiac size. No pulmonary vascular congestion. OSSEOUS STRUCTURES: No significant abnormalities. VISUALIZED UPPER ABDOMEN: Normal. OTHER FINDINGS: None. IMPRESSION: No active disease. Progress Note: Patient treated with IVF NSS. On re-evaluation lungs clear, abdomen soft. Tolerating PO. On re-evaluation patient tolerating PO Reassessment Condition: Improved Medical Decision Making Medical Decision Making: Plan: EKG Labs CXR IV Fluids UA Disposition Counseled Patient/Family Regarding: Studies Performed, Diagnosis, Need For Followup, Rx Given - Disposition Referrals: Adonis Meng MD [Staff Provider] - Disposition: HOME/ ROUTINE Disposition Time: 14:10 Condition: STABLE Additional Instructions: Follow up with your PMD for further evaluation Instructions: Hyperglycemia, Adult Forms: [facility] (Lux[place]bourgish) - POA Present On Arrival: None - Clinical Impression Clinical Impression: Hyperglycemia - PA / WHIZZER HAND / Resident Statement MD/DO has reviewed & agrees with the documentation as recorded. - Scribe Statement The provider has reviewed the documentation as recorded by the Emma Chowdary All medical record entries made by the Scribe were at my direction and personally dictated by me. I have reviewed the chart and agree that the record accurately reflects my personal performance of the history, physical exam, medical decision making, and the department course for this patient. I have also personally directed, reviewed, and agree with the discharge instructions and disposition.
[2019-01-06] MEDS ORDERED: Sodium Chloride 0.9% 1,000 ML IV ONE (10:54)
[2019-01-06 11:28] LABS: BASO # 0.1 K/uL (0.0-0.2); EOS # 0.1 K/uL (0.0-0.7); EOS % 1.2 % (0.0-4.0); HEMOGLOBIN 13.8 g/dL (12.0-18.0); LYMPH % 30.6 % (20.0-40.0); MEAN CORPUSCULAR HEMOGLOBIN 32.4 pg (27.0-31.0); MEAN CORPUSCULAR HGB CONC 33.7 g/dL (33.0-37.0); MEAN PLATELET VOLUME 8.8 fL (7.2-11.7); MONO # 0.7 K/uL (0.0-0.8); MONO % 10.8 % (0.0-10.0); NEUT # 3.8 K/uL (1.8-7.0); NEUT % 56.4 % (50.0-75.0); NRBC % 0.1 % (0.0-2.0); RBC 4.27 Mil/uL (4.40-5.90); RED CELL DISTRIBUTION WIDTH 12.4 % (11.5-14.5); WHITE BLOOD COUNT 6.7 K/uL (4.8-10.8)
[2019-01-06 11:29] LABS: MEAN CELL VOLUME 96.2 fL (80.0-94.0)
[2019-01-06 11:31] LABS: URINE BILIRUBIN NEGATIVE (NEGATIVE); URINE BLOOD NEGATIVE (NEGATIVE); URINE CLARITY Clear (Clear); URINE COLOR Yellow (YELLOW); URINE GLUCOSE (UA) 3+ mg/dL (Normal); URINE LEUKOCYTE ESTERASE NEG Leu/uL (Negative); URINE PROTEIN NEGATIVE (NEGATIVE)
--- NOTE | 2019-01-06 11:37 | RAD ---
Date of service: 01/06/2019 HISTORY: SOB COMPARISON: 07/15/2018 TECHNIQUE: Chest PA and lateral views FINDINGS: LUNGS: No active pulmonary disease. PLEURA: No significant pleural effusion identified. No pneumothorax apparent. CARDIOVASCULAR: No aortic atherosclerotic calcification present. Normal cardiac size. No pulmonary vascular congestion. OSSEOUS STRUCTURES: No significant abnormalities. VISUALIZED UPPER ABDOMEN: Normal. OTHER FINDINGS: None. IMPRESSION: No active disease.
[2019-01-06 11:51] LABS: ALB/GLOB RATIO 1.3 (1.0-2.1); ALBUMIN 4.1 g/dL (3.5-5.0); ALT/SGPT 28 U/L (21-72); AST/SGOT 39 U/L (17-59); BLOOD UREA NITROGEN 15 mg/dL (9-20); CALCIUM 9.6 mg/dl (8.6-10.4); GFR NON-AFRICAN AMERICAN > 60; LIPASE 318 U/L (23-300)
[2019-01-06 14:22] VITALS: BP 133/87; PULSE 65; RESP 20; TEMP 97.7
[2019-01-06 17:50] VITALS: O2SAT 98
--- NOTE | 2019-01-09 12:38 | CARD ---
APPROVED REPORT Date of service: 01/06/2019 EKG Measurement Heart [id number] <Conclusion> Normal sinus rhythm Normal ECG
== END 2019-01-06 14:20 | disposition home or self-care (01) ==
LOC: C.ER 10:03
DX: E11.65 Type 2 diabetes mellitus with hyperglycemia (principal); Z79.84 Long term (current) use of oral hypoglycemic drugs
CPT/HCPCS: 71046; 80053; 81001; 82948; 83690; 84484; 85025; 93005; 96360; 99284; J7030